=== PATIENT | male | born 1935 | race Caucasian/White ===

== ENCOUNTER 2019-07-24 17:43 | Inpatient (IN) | payer MEDICARE ==
[2019-07-24] MEDS ORDERED: ACETAMINOPHEN TAB 500 MG TAB PO STA (17:57)
[2019-07-24] MEDS ORDERED: SODIUM CHLORIDE 0.9% 1,000 ML IV STA (17:57)
--- NOTE | 2019-07-24 18:28 | ED ---
Chest Pain HPI - General Chief Complaint: Chest Pain Stated Complaint: all over pain Time Seen by Provider: 07/24/19 17:47 Source: patient, RN notes reviewed, old records reviewed Mode of arrival: ambulatory Limitations: no limitations - History of Present Illness Initial Comments: This is an 10-year-old male DF for evaluation mildly poor strain secondary to some hearing disability. Patient presents today with some chest discomfort some muscle strain and pain center for a few days but wanted to be seen by Dr. Saldana has been increasingly bottom denying any specific shortness of breath he does do his vital signs at home with her normal oxygen 0 96 with normal blood pressure heart rate. Patient remains afebrile no travel history or known sick contacts. Patient does have a mild history of high blood pressure did have abdominal bowel resection but no problems or issues there. No abdominal pain no nausea vomiting or diarrhea MD Complaint: chest pain, other (Muscle aches and pains anterior chest back or shoulders) -: days(s) Onset: during rest Pain Location: substernal Pain Radiation: none Severity: moderate Severity scale (1-10): 4 Quality: heaviness Consistency: constant Improves With: nothing Worsens With: nothing Other Symptoms: palpitations Treatments Prior to Arrival: none - Related Data Home Medications Medication Instructions Recorded Confirmed Acetaminophen Tab [Tylenol] 1,000 mg PO Q6H PRN 07/24/19 07/24/19 Losartan-Hctz 50-12.5 mg [Hyzaar 1 tab PO DAILY 07/24/19 07/24/19 50-12.5] Vit C/E/Zn/Coppr/Lutein/Zeaxan 1 cap PO BID 07/24/19 07/24/19 [Preservision Areds 2 Softgel] Allergies Allergy/AdvReac Type Severity Reaction Status Date / Time No Known Allergies Allergy Verified 07/24/19 18:30 Review of Systems ROS Statement: Those systems with pertinent positive or pertinent negative responses have been documented in the HPI. ROS Other: All systems not noted in ROS Statement are negative. EKG Findings - EKG Comments: EKG Findings:: EKG shows sinus rhythm of 88, RI 136, QRS 84, QTc 462 Past Medical History Past Medical History: Hyperlipidemia, Hypertension Additional Past Medical History / Comment(s): macular degeneration History of Any Multi-Drug Resistant Organisms: None Reported Additional Past Surgical History / Comment(s): GI bleed Smoking Status: Former smoker Past Alcohol Use History: None Reported Past Drug Use History: None Reported General Exam Limitations: no limitations General appearance: alert, in no apparent distress Head exam: Present: atraumatic, normocephalic, normal inspection Eye exam: Present: normal appearance, PERRL, EOMI. Absent: scleral icterus, conjunctival injection, periorbital swelling ENT exam: Present: normal exam, mucous membranes moist Neck exam: Present: normal inspection. Absent: tenderness, meningismus, lymphadenopathy Respiratory exam: Present: normal lung sounds bilaterally. Absent: respiratory distress, wheezes, rales, rhonchi, stridor Cardiovascular Exam: Present: regular rate, normal rhythm, normal heart sounds. Absent: systolic murmur, diastolic murmur, rubs, gallop, clicks GI/Abdominal exam: Present: soft, normal bowel sounds. Absent: distended, tenderness, guarding, rebound, rigid Extremities exam: Present: normal inspection, full ROM, normal capillary refill. Absent: tenderness, pedal edema, joint swelling, calf tenderness Back exam: Present: normal inspection Neurological exam: Present: alert, oriented X3, CN II-XII intact Psychiatric exam: Present: normal affect, normal mood Skin exam: Present: warm, dry, intact, normal color. Absent: rash Course Vital Signs 07/24/19 17:46 Temperature 97.3 F L Pulse Rate 95 Respiratory 18 Rate Blood Pressure 116/78 O2 Sat by Pulse 93 L Oximetry - Reevaluation(s) Reevaluation #1: 07/24/19 18:36 Medical record is reviewed Reevaluation #2: 07/24/19 20:06 Patient still having some left-sided chest pain but no shortness of breath Reevaluation #3: 07/24/19 20:06 Spoke with family regarding results, questions are answered - Consultations Consultation #1: spoke w EM who were agreeable for admission Chest Pain MDM - MDM 84 male DF for evaluation of chest pain patient does have non-STEMI elevated troponin will admit for cardiac treatment and evaluation. Patient placed on anticoagulation and cardiac telemetry Critical Care Time Critical Care Time: Yes Total Critical Care Time: 31 Disposition Clinical Impression: Chest pain, Acute non-ST elevation myocardial infarction (NSTEMI) Disposition: ADMITTED IP TO THIS HOSP Condition: Serious Is patient prescribed a controlled substance at d/c from ED?: No Referrals: Kathia Forde, PAC [Family Provider] - 1-2 days
[2019-07-24 18:52] LABS: Basophils # (A) 0.1 k/uL (0-0.2); Basophils % (A) 0 %; Eosinophils # (A) 0.1 k/uL (0-0.7); Eosinophils % (A) 1 %; HCT 42.6 % (39.0-53.0); Lymphocytes # (A) 1.8 k/uL (1.0-4.8); Lymphocytes % (A) 16 %; MCH 30.1 pg (25.0-35.0); MCHC 32.8 g/dL (31.0-37.0); MCV 91.7 fL (80.0-100.0); Mean Platelet Volume 7.1; Monocytes # (A) 1.1 k/uL (0-1.0); Monocytes % (A) 10 %; Neutrophils % (A) 70 %; Platelet Count 465 k/uL (150-450); RBC 4.65 m/uL (4.30-5.90); RDW 14.4 % (11.5-15.5); WBC 11.5 k/uL (3.8-10.6)
[2019-07-24 19:00] LABS: Calcium 9.8 mg/dL (8.4-10.2); Magnesium 1.5 mg/dL (1.6-2.3); Phosphorus 3.5 mg/dL (2.5-4.5); Potassium 3.9 mmol/L (3.5-5.1); Total Protein 7.3 g/dL (6.3-8.2)
[2019-07-24 19:08] LABS: Creatine Kinase MB 1.2 ng/mL (0.0-2.4)
--- NOTE | 2019-07-24 19:08 | XR ---
EXAMINATION TYPE: XR chest 2V DATE OF EXAM: 07/24/2019 COMPARISON: NONE HISTORY: Weakness and chest pain TECHNIQUE: Frontal and lateral views of the chest are obtained. FINDINGS: Pulmonary hyperinflation of underlying COPD is seen with flattening of the diaphragms. Api javier lucency is seen. Cardiomediastinal silhouette is within normal limits. Mild multilevel degenerati ve change of the spine and diffuse osseous demineralization. No new focal consolidation, pleural effu sada or pneumothorax. IMPRESSION: No acute cardiopulmonary process. Sequela of COPD.
[2019-07-24 19:21] LABS: INR 1.1 (<1.2); Partial Thromboplastin Time 25.2 sec (22.0-30.0); Prothrombin Time 10.9 sec (9.0-12.0)
[2019-07-24 19:29] LABS: Troponin I 0.198 ng/mL (0.000-0.034)
[2019-07-24] MEDS ORDERED: HEPARIN SODIUM,PORCINE 5,000 UNIT/ML 1 ML VIAL IV ONE (20:04)
[2019-07-24] MEDS ORDERED: NITROGLYCERIN SL TABS 0.4 MG TAB SUBLINGUAL PRN (20:04)
[2019-07-24] MEDS ORDERED: MORPHINE SULFATE 4 MG/ML SYRINGE IV PRN (20:04)
[2019-07-24] MEDS ORDERED: ASPIRIN 81 MG PO STA (20:04)
[2019-07-24] MEDS ORDERED: HEPARIN SODIUM,PORCINE 5,000 UNIT/ML 1 ML VIAL IV PRN (20:04)
[2019-07-24] MEDS ORDERED: HEPARIN SOD,PORK IN 0.45% NACL 25,000 UNIT in 0.45% NACL 1 250ML.BAG IV SCH (20:15)
[2019-07-24] MEDS ORDERED: SODIUM CHLORIDE 0.9% 1,000 ML IV SCH (20:15)
[2019-07-24] MEDS ORDERED: ACETAMINOPHEN TAB 500 MG TAB PO PRN (21:23)
[2019-07-24] MEDS: SODIUM CHLORIDE 0.9% 1,000 ML IV SCH (21:27)
[2019-07-25 03:21] LABS: Appearance,Urine Clear (Clear); Bacteria,Urine Moderate /hpf; Bilirubin,Urine Negative (Negative); Blood,Urine Trace (Negative); Color,Urine Yellow; Glucose,Urine (UA) Negative (Negative); Hyaline Casts,Urine 4 /lpf (0-2); Ketones,Urine Negative (Negative); Leukocyte Esterase,Urine Large (Negative); Mucus,Urine Rare /hpf; Nitrite,Urine Negative (Negative); PH, Urine 5.5 (5.0-8.0); Protein,Urine Trace (Negative); RBC,Urine 3 /hpf (0-5); Specific Gravity,Urine 1.013 (1.001-1.035); Squamous Epithelial Cell,Urine <1 /hpf (0-4); Urobilinogen,Urine <2.0 mg/dL (<2.0); WBC,Urine 49 /hpf (0-5)
[2019-07-25 04:27] LABS: Mean Platelet Volume 7.3; Platelet Count 397 k/uL (150-450)
[2019-07-25 06:01] LABS: Cholesterol 144 mg/dL (<200); HDL Cholesterol 37 mg/dL (40-60); LDL Cholesterol,Calculated 93 mg/dL (0-99); Triglycerides 71 mg/dL (<150)
[2019-07-25] MEDS ORDERED: ALPRAZolam 0.5 MG TAB PO PRN (08:35)
[2019-07-25] MEDS ORDERED: NITROGLYCERIN SL TABS 0.4 MG TAB SUBLINGUAL PRN (08:35)
[2019-07-25] MEDS ORDERED: ASPIRIN 325 MG TAB PO STA (08:35)
[2019-07-25] MEDS ORDERED: ATORVASTATIN 80 MG TAB PO STA (08:35)
[2019-07-25] MEDS ORDERED: SODIUM CHLORIDE 0.9% 1,000 ML in EMPTY BAG 1 BAG IV ONE (08:35)
[2019-07-25] MEDS ORDERED: ALPRAZolam 0.25 MG TAB PO PRN (08:35)
[2019-07-25] MEDS ORDERED: ASPIRIN 325 MG TAB PO SCH (09:00)
[2019-07-25] MEDS ORDERED: ATORVASTATIN 80 MG TAB PO SCH (09:00)
[2019-07-25] MEDS: VIT A,C & E-LUTEIN-MINERALS 1 EACH TAB PO SCH ×2 (09:04→20:30)
[2019-07-25] MEDS: LOSARTAN-HCTZ 50-12.5 MG 1 EACH TAB PO SCH (09:04)
--- NOTE | 2019-07-25 09:08 | ECHOF ---
Referral Reason:abn trop MEASUREMENTS -------- HEIGHT: 180.3 cm WEIGHT: 78.0 kg BP: 125/64 IVSd: 1.2 cm (0.6 - 1.1) LVIDd: 2.9 cm (3.9 - 5.3) LVPWd: 1.3 cm (0.6 - 1.1) IVSs: 1.5 cm LVIDs: 1.9 cm LVPWs: 1.6 cm LAESV Index (A-L): 16.82 ml/m Ao Diam: 3.8 cm (2.0 - 3.7) AV Cusp: 1.7 cm (1.5 - 2.6) MV EXCURSION: 14.056 mm (> 18.000) MV EF SLOPE: 124 mm/s (70 - 150) EPSS: 1.4 cm MV E Amos: 0.53 m/s MV DecT: 172 ms MV A Amos: 0.93 m/s MV E/A Ratio: 0.57 AR PHT: 388 ms RAP: 5.00 mmHg RVSP: 14.95 mmHg FINDINGS -------- Sinus rhythm. This was a technically difficult study with suboptimal apical views. The left ventricular size is normal. There is mild concentric left ventricular hypertrophy. Overa ll left ventricular systolic function is normal with, an EF between 55 - 60 %. The diastolic fillin g pattern is normal for the age of the patient 8.05. The RV was not well visualized. Normal LA size by volume 22+/-6 ml/m2. The right atrium was not well visualized. 5.0mg of Lumason was utilized for enhancement of images Interatrial and interventricular septum intact. The aortic valve was not well visualized. Trace amount of aortic regurgitation. There is no evid ence of aortic stenosis. No mitral regurgitation. Mild tricuspid regurgitation present. There is no evidence of pulmonary hypertension. The right v entricular systolic pressure, as measured by Doppler, is 14.95mmHg. The pulmonic valve was not well visualized. There is no pulmonic regurgitation present. The aortic root size is normal. IVC Not well visulized. There is no pericardial effusion. CONCLUSIONS -------- 1. This was a technically difficult study with suboptimal apical views. 2. The left ventricular size is normal. 3. There is mild concentric left ventricular hypertrophy. 4. Overall left ventricular systolic function is normal with, an EF between 55 - 60 %. 5. The diastolic filling pattern is normal for the age of the patient 8.05 6. The RV was not well visualized. 7. Normal LA size by volume 22+/-6 ml/m2. 8. 5.0mg of Lumason was utilized for enhancement of images 9. The aortic valve was not well visualized. 10. Trace amount of aortic regurgitation. 11. There is no evidence of aortic stenosis. 12. No mitral regurgitation. 13. Mild tricuspid regurgitation present. 14. There is no evidence of pulmonary hypertension. 15. There is no pulmonic regurgitation present. 16. IVC Not well visulized. 17. There is no pericardial effusion. WELDER APPRENTICE ARC: Tammy Simon RDCS
--- NOTE | 2019-07-25 10:07 | CONS ---
CONSULTATION This is an 84-year-old gentleman who is hard of hearing, has history of hypertension, has had some bowel surgery in 2007. He is a reasonably active person. He came into the hospital after a phone call from his primary care physician and his PCP suggested he should go to the emergency room. He has been having ongoing episode of discomfort in the upper chest and between the scapula. The discomfort seemed to be persistent, seemed to occur with activity. After arrival to the hospital, his troponin has gone up and the profile suggests myocardial injury with a small non ST elevation MS. EKG, however, was unremarkable. He is resting comfortably at the time of my evaluation, but clearly the troponin profile and symptoms to suggest angina. PAST MEDICAL HISTORY: 1. Hypertension. 2. History of some bowel surgery that was performed in 2007, details are unclear, but the patient did not have any malignancy. 3. He also has underlying hypertension and macular degeneration. 4. He has a remote history of GI bleed, details are unclear. 5. He is a past smoker. ALLERGIES: None. MEDICATIONS: Medications include losartan HCTZ 50/12.5 one tablet daily and vitamin supplements. PHYSICAL EXAMINATION: On examination, blood pressure is 130/70, pulse rate is 80 per minute, regular. HEENT unremarkable. Fundus was not examined by me. Neck is supple. There is no JVD. There is no carotid bruit. Heart exam reveals S1, S2. There is a short systolic murmur in the left sternal border. Lungs reveal diminished air entry. Abdomen is soft, nontender. Lower extremities reveal diminished pulses. Central nervous system grossly within normal limits. IMPRESSION: 1. Chest pain syndrome with elevated troponin suggestive of non-ST elevation myocardial infarction. 2. Hypertension. 3. History of remote gastrointestinal bleed and GI surgery, details unclear. RECOMMENDATION: I am recommending coronary angiography. I explained to the patient the rationale, risks, benefits, and options. I also spoke to his daughter at length. Both of them understand, agree and wish to proceed. They are aware of the risks, benefits, and options. We will perform coronary angiography and PCI if indicated. Prior to surgery, he wanted to have another discussion with his daughter and myself. MMODL / IJN: [id number] /
[2019-07-25] MEDS: METOPROLOL TARTRATE 25 MG TAB PO SCH ×2 (10:17→20:30)
[2019-07-25] MEDS ORDERED: IV FLUID CONTINUATION 600 ML IV ONE (10:45)
[2019-07-25] MEDS ORDERED: MIDAZOLAM 2 MG/2 ML VIAL IV ONE (11:03)
[2019-07-25] MEDS ORDERED: LIDOCAINE 1% INJ 10MG/ML (20 ML MDV) SQ ONE (11:05)
[2019-07-25] MEDS: VERAPAMIL SYRINGE (5 MG/10 ML) INTRAARTER ONE ×2 (11:06→11:16)
[2019-07-25] MEDS ORDERED: IOPAMIDOL-370 100ML BTL INJ ONE (11:16)
[2019-07-25] MEDS ORDERED: RX INFO: IV CONTRAST WAS GIVEN 1 EACH MISC MISCELLANE PRN (11:23)
--- NOTE | 2019-07-25 12:10 | CC ---
CARDIAC CATHETERIZATION REPORT DATE OF SERVICE: 07/25/2019 PROCEDURE: Left heart catheterization and coronary angiography. PERFORMED BY: Dr. Greta Estrada. Moderate conscious sedation time was 16 minutes. The patient was administered Versed. Oxygen saturation, hemodynamics and EKG were monitored closely. CLINICAL INFORMATION: Mr. Chase Reyes is an 84-year-old gentleman with history of hypertension, came into the hospital with midscapular pressure-like discomfort that radiated to the front of the chest with some diaphoresis. His initial troponin and subsequent troponins went up with a trend suggestive of non-ST elevation AL. Pain was precordial and midscapular. His blood pressure was never elevated. His blood pressure is under good control with losartan. In view of a troponin rise and symptoms, he was advised coronary angiography after due discussion regarding risks, benefits, and options. PROCEDURE NOTE: Under local anesthesia and strict aseptic precautions, a 6-[place] sheath was placed in the right radial artery. Using a JL3.5 and JR4.0 catheter, I performed coronary angiography. The same right catheter was used to check LV pressure. The sheath was taken out and TR band applied as per protocol with saturation of the fingers of the right hand of 95%. Patient tolerated procedure well without complication. Results were discussed with the patient and I also spoke to his daughter, Seble, by phone. CARDIAC CATHETERIZATION FINDINGS: The left ventricular end-diastolic pressure was about 8-10 mmHg without any gradient across the aortic valve. CORONARY ANGIOGRAPHY FINDINGS: RIGHT CORONARY ARTERY: Large dominant vessel. No significant disease. Distally bifurcates into a larger PLV, smaller PDA. Has minor irregularities. No significant disease. LEFT MAIN CORONARY ARTERY: Short patent disease-free vessel that bifurcates into LAD and circumflex. LEFT ANTERIOR DESCENDING CORONARY ARTERY: Good caliber vessel extends along the anterior wall, gives off large diagonal and septal branches, has minor irregularities, no significant disease and runs all the way to the apex supplying a sizable amount of myocardium. The diagonal and LAD both seem to supply the LAD distribution. There are small septal branches which are also free of significant disease. LEFT POSTERIOR CIRCUMFLEX CORONARY ARTERY: This is a technically nondominant vessel, small caliber in distribution, gives off one high obtuse marginal then continues as a second obtuse marginal. There are minor irregularities. No significant disease. FINAL IMPRESSION: This patient has normal filling pressures. No gradient across aortic valve. Right dominant system. No significant coronary artery disease. His elevated troponin is probably unrelated to myocardial injury. I will obtain a D-dimer and consider a CT angio tomorrow if patient's symptoms persist. Discussed my thoughts in detail with the patient. He will be hydrated and we will check BUN and creatinine in the morning. MMODL / IJN: [id number] /
[2019-07-25] MEDS: SODIUM CHLORIDE 0.9% 1,000 ML IV SCH ×3 (12:36→21:17)
--- NOTE | 2019-07-25 14:09 | P.HPIM ---
History of Present Illness 84-year-old the pleasant male came in with complaints of chest pain which appears to be musculoskeletal which appears to mostly shoulder pain nonradiating has been going on for few days improves with Tylenol denied any excessive nausea lightheadedness shortness of breath patient chest pain is nonpleuritic not associated with food. Patient d-dimer is normal for his age patient underwent cardiac catheterization of Ruling out a concurrent syndromes because of elevated troponins which is a mild elevation and did not have any it was cardiovascular disease that will need intervention or stenting. Review of Systems REVIEW OF SYSTEMS: CONSTITUTIONAL: No fever, no malaise, no fatigue. HEENT: No recent visual problems or hearing problems. Denied any sore throat. CARDIOVASCULAR: No, orthopnea, PND, no palpitations, no syncope. PULMONARY: No shortness of breath, no cough, no hemoptysis. GASTROINTESTINAL: No diarrhea, no nausea, no vomiting, no abdominal pain. NEUROLOGICAL: No headaches, no weakness, no numbness. HEMATOLOGICAL: Denies any bleeding or petechiae. GENITOURINARY: Denies any burning micturition, frequency, or urgency. MUSCULOSKELETAL/RHEUMATOLOGICAL: Denies any joint pain, swelling, or any muscle pain. ENDOCRINE: Denies any polyuria or polydipsia. The rest of the 14-point review of systems is negative. Past Medical History Past Medical History: GI Bleed, Hyperlipidemia, Hypertension Additional Past Medical History / Comment(s): macular degeneration History of Any Multi-Drug Resistant Organisms: None Reported Additional Past Surgical History / Comment(s): colonoscopy 2007 Past Anesthesia/Blood Transfusion Reactions: No Reported Reaction Smoking Status: Former smoker Medications and Allergies Home Medications Medication Instructions Recorded Confirmed Type Acetaminophen Tab [Tylenol] 1,000 mg PO Q6H PRN 07/24/19 07/24/19 History Losartan-Hctz 50-12.5 mg [Hyzaar 1 tab PO DAILY 07/24/19 07/24/19 History 50-12.5] Vit C/E/Zn/Coppr/Lutein/Zeaxan 1 cap PO BID 07/24/19 07/24/19 History [Preservision Areds 2 Softgel] Allergies Allergy/AdvReac Type Severity Reaction Status Date / Time No Known Allergies Allergy Verified 07/24/19 18:30 Physical Exam Vitals: Vital Signs Temp Pulse Pulse Pulse Resp BP BP 07/25/19 12:38 76 20 117/58 07/25/19 12:08 72 20 118/68 07/25/19 11:53 84 20 115/62 07/25/19 11:38 77 20 117/58 07/25/19 08:00 97.6 F 93 20 151/72 07/25/19 04:00 97.7 F 74 18 125/64 07/24/19 23:57 92 18 07/24/19 23:53 97.8 F 92 18 112/58 07/24/19 21:09 97.6 F 87 18 139/70 07/24/19 21:00 92 18 07/24/19 20:30 84 18 120/75 07/24/19 20:00 80 131/76 07/24/19 19:30 91 124/74 07/24/19 19:00 86 125/78 07/24/19 18:30 90 134/69 07/24/19 18:00 92 07/24/19 17:46 97.3 F L 95 18 116/78 Pulse Ox 07/25/19 12:38 95 07/25/19 12:08 94 L 07/25/19 11:53 94 L 07/25/19 11:38 95 07/25/19 08:00 95 07/25/19 04:00 96 07/24/19 23:57 07/24/19 23:53 97 07/24/19 21:09 96 07/24/19 21:00 07/24/19 20:30 96 07/24/19 20:00 07/24/19 19:30 07/24/19 19:00 07/24/19 18:30 97 07/24/19 18:00 07/24/19 17:46 93 L Intake and Output 07/24/19 07/25/19 07/25/19 22:59 06:59 14:59 Intake Total 220 Output Total 400 Balance -180 Intake: IV 100 Oral 120 Output: Urine 400 Other: Voiding Method Toilet Toilet Urinal Urinal # Voids 2 2 Weight 80.739 kg 78.2 kg PHYSICAL EXAMINATION: GENERAL: The patient is alert and oriented x3, not in any acute distress. Well developed, well nourished. HEENT: Pupils are round and equally reacting to light. EOMI. No scleral icterus. No conjunctival pallor. Normocephalic, atraumatic. No pharyngeal erythema. No thyromegaly. CARDIOVASCULAR: S1 and S2 present. No murmurs, rubs, or gallops. PULMONARY: Chest is clear to auscultation, no wheezing or crackles. ABDOMEN: Soft, nontender, nondistended, normoactive bowel sounds. No palpable organomegaly. MUSCULOSKELETAL: No joint swelling or deformity. EXTREMITIES: No cyanosis, clubbing, or pedal edema. NEUROLOGICAL: Gross neurological examination did not reveal any focal deficits. SKIN: No rashes. Results CBC & Chem 7: 07/25/19 04:01 07/24/19 18:05 Labs: Abnormal Lab Results - Last 24 Hours (Table) 07/24/19 07/24/19 07/24/19 Range/Units 18:05 18:05 18:05 WBC 11.5 H (3.8-10.6) k/uL Plt Count 465 H (150-450) k/uL Neutrophils # 8.0 H (1.3-7.7) k/uL Monocytes # 1.1 H (0-1.0) k/uL APTT (22.0-30.0) sec D-Dimer (<0.60) mg/L FEU Sodium 135 L (137-145) mmol/L Chloride 94 L (98-107) mmol/L Carbon Dioxide 31 H (22-30) mmol/L Glucose 107 H (74-99) mg/dL Magnesium 1.5 L (1.6-2.3) mg/dL Creatine Kinase 33 L (55-170) U/L Troponin I 0.198 H* (0.000-0.034) ng/mL HDL Cholesterol (40-60) mg/dL Urine Protein (Negative) Urine Blood (Negative) Ur Leukocyte Esterase (Negative) Urine WBC (0-5) /hpf Urine WBC Clumps (None) /hpf Urine Bacteria (None) /hpf Hyaline Casts (0-2) /lpf Urine Mucus (None) /hpf 07/25/19 07/25/19 07/25/19 Range/Units 00:05 01:25 04:01 WBC (3.8-10.6) k/uL Plt Count (150-450) k/uL Neutrophils # (1.3-7.7) k/uL Monocytes # (0-1.0) k/uL APTT (22.0-30.0) sec D-Dimer (<0.60) mg/L FEU Sodium (137-145) mmol/L Chloride (98-107) mmol/L Carbon Dioxide (22-30) mmol/L Glucose (74-99) mg/dL Magnesium (1.6-2.3) mg/dL Creatine Kinase (55-170) U/L Troponin I 0.355 H* 0.283 H* (0.000-0.034) ng/mL HDL Cholesterol (40-60) mg/dL Urine Protein Trace H (Negative) Urine Blood Trace H (Negative) Ur Leukocyte Esterase Large H (Negative) Urine WBC 49 H (0-5) /hpf Urine WBC Clumps Few H (None) /hpf Urine Bacteria Moderate H (None) /hpf Hyaline Casts 4 H (0-2) /lpf Urine Mucus Rare H (None) /hpf 07/25/19 07/25/19 07/25/19 Range/Units 04:01 04:01 11:40 WBC (3.8-10.6) k/uL Plt Count (150-450) k/uL Neutrophils # (1.3-7.7) k/uL Monocytes # (0-1.0) k/uL APTT 47.5 H (22.0-30.0) sec D-Dimer 0.80 H (<0.60) mg/L FEU Sodium (137-145) mmol/L Chloride (98-107) mmol/L Carbon Dioxide (22-30) mmol/L Glucose (74-99) mg/dL Magnesium (1.6-2.3) mg/dL Creatine Kinase (55-170) U/L Troponin I (0.000-0.034) ng/mL HDL Cholesterol 37 L (40-60) mg/dL Urine Protein (Negative) Urine Blood (Negative) Ur Leukocyte Esterase (Negative) Urine WBC (0-5) /hpf Urine WBC Clumps (None) /hpf Urine Bacteria (None) /hpf Hyaline Casts (0-2) /lpf Urine Mucus (None) /hpf Microbiology - Last 24 Hours (Table) 07/25/19 01:25 Urine Culture - Preliminary Urine,Voided Thrombosis Risk Factor Assmnt - Choose All That Apply Any of the Below Risk Factors Present?: No Other Risk Factors: Yes Each Risk Factor Represents 3 Points: Age 75 years or older Other congenital or acquired thrombophilia - If yes, enter type in comment: No Thrombosis Risk Factor Assessment Total Risk Factor Score: 3 Thrombosis Risk Factor Assessment Level: Moderate Risk Assessment and Plan Plan: -chest pain: Rule out acute medicine syndromes and the patient underwent cardiac catheterization which did not show any significant atherosclerotic occlusive dis ease that will need intervention. Possibly of PE is low as patient has a normal d-dimer for his age. Patient will be monitored overnight as recommended by cardiology. -Elevated troponin no evidence of acute microinfarction etiology of elevated troponin is not clear. Patient has multiple musculoskeletal chest pain -shoulder pain for which patient will need to follow up with orthopedic surgery as an outpatient and Tylenol -hyperlipidemia -hypertension
[2019-07-25] MEDS: MAGNESIUM SULFATE-D5W PMX 1 GM in DEXTROSE/WATER 1 100ML.BAG IVPB SCH ×2 (15:38→16:43)
[2019-07-25] MEDS: BUDESONIDE 0.5 MG/2 ML NEBU INHALATION SCH (20:52)
[2019-07-26] MEDS: METOPROLOL TARTRATE 25 MG TAB PO SCH ×2 (08:13→23:52)
[2019-07-26] MEDS: ATORVASTATIN 20 MG TAB PO SCH (08:13)
[2019-07-26] MEDS: LOSARTAN-HCTZ 50-12.5 MG 1 EACH TAB PO SCH (08:13)
[2019-07-26] MEDS: VIT A,C & E-LUTEIN-MINERALS 1 EACH TAB PO SCH ×2 (08:13→23:52)
[2019-07-26] MEDS: ASPIRIN 81 MG PO SCH (08:13)
[2019-07-26] MEDS: SODIUM CHLORIDE 0.9% 1,000 ML IV SCH (08:14)
[2019-07-26] MEDS: IPRATROPIUM-ALBUTEROL 3 ML NEB INHALATION PRN ×2 (08:42→16:40)
[2019-07-26] MEDS: BUDESONIDE 0.5 MG/2 ML NEBU INHALATION SCH ×2 (08:42→20:29)
[2019-07-26 08:47] LABS: Basophils % (A) 0 %; Eosinophils # (A) 0.2 k/uL (0-0.7); Eosinophils % (A) 2 %; HCT 38.5 % (39.0-53.0); HGB 12.1 gm/dL (13.0-17.5); Lymphocytes # (A) 1.4 k/uL (1.0-4.8); Lymphocytes % (A) 13 %; MCH 29.4 pg (25.0-35.0); MCHC 31.5 g/dL (31.0-37.0); MCV 93.1 fL (80.0-100.0); Mean Platelet Volume 7.3; Monocytes # (A) 1.3 k/uL (0-1.0); Monocytes % (A) 12 %; Neutrophils # (A) 7.3 k/uL (1.3-7.7); Neutrophils % (A) 70 %; Platelet Count 392 k/uL (150-450); RBC 4.13 m/uL (4.30-5.90); RDW 14.3 % (11.5-15.5); WBC 10.5 k/uL (3.8-10.6)
[2019-07-26 08:57] LABS: African American GFR (CKD) >90 (>60 ml/min/1.73 sqM); Anion Gap 5 mmol/L; Blood Urea Nitrogen 23 mg/dL (9-20); Calcium 9.2 mg/dL (8.4-10.2); Carbon Dioxide 33 mmol/L (22-30); Chloride 97 mmol/L (98-107); Glucose 108 mg/dL (74-99); Magnesium 1.8 mg/dL (1.6-2.3); Non-African American GFR(CKD) 85 (>60 ml/min/1.73 sqM); Potassium 4.1 mmol/L (3.5-5.1); Sodium 135 mmol/L (137-145)
[2019-07-26] MEDS ORDERED: methylPREDNISolone SOD SUCCI 125 MG/2 ML VIAL IV STA (09:40)
--- NOTE | 2019-07-26 11:21 | CT ---
EXAMINATION TYPE: CT angio chest DATE OF EXAM: 07/26/2019 COMPARISON: NONE HISTORY: NStemi; Elevated d-dimer CT DLP: 351.3 mGycm. Automated Exposure Control for Dose Reduction was Utilized. CONTRAST: CTA scan of the thorax is performed without and with IV Contrast, patient injected with 100 ml mL of Isovue 370, pulmonary embolism protocol. MIP Images are created on CT scanner and reviewed. FINDINGS: LUNGS: There is a lingular 4 mm pulmonary nodule seen. Extensive respiratory motion limits evaluation . Moderate centrilobular emphysematous changes of the lungs and scattered areas of linear pleural par enchymal scarring. The lungs are grossly clear, there is no concerning parenchymal mass or nodule jeancarlos ntified. There is no pleural effusion or pneumothorax seen. The tracheobronchial tree is patent. MEDIASTINUM: There is satisfactory enhancement of the main pulmonary artery and the majority of its b ranches. However there is motion artifact with linear areas of hypoattenuation in the segmental pulmo nary artery to the right lower lobe. This does in fact appear linear on coronal reconstructed images and could be artifactual. Remainder of the pulmonary arteries display no evidence of pulmonary embolu s. No abnormal right ventricular to left ventricular ratio. Reflux of contrast into the inferior vena cava and hepatic veins are seen however. The main pulmonary artery measures 3.0 cm, upper limits of normal size. There are no greater than 1 cm hilar or mediastinal lymph nodes. No cardiomegaly or pe ricardial effusion is seen. Mild coronary calcifications seen. 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 There is a large hiatal hernia. Multile xuan degenerative disc disease of the spine is seen with multiple Schmorl's nodes. Slight vertebral glenis dy height loss of T7. IMPRESSION: 1. The majority the pulmonary arteries demonstrate no evidence of pulmonary embolus however the right lower lobe segmental pulmonary artery is equivocal for pulmonary embolus with large degree of respir atory motion demonstrated on the lung algorithm obscuring this segmental pulmonary artery. If there i s further clinical concern repeat imaging could be performed in 12-24 hours. 2. 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 3. Age-indeterminate mild compression deformity of T7. Correlate for point tenderness. 4. Lingular 4 mm pulmonary nodule for which consensus criteria recommends repeat CT for surveillance in 12 months. 5. Main pulmonary artery is upper limits of normal size, which can be seen in pulmonary arterial hype rtension. 6. Moderate emphysematous changes of the lungs.
[2019-07-26] MEDS ORDERED: FUROSEMIDE 10 MG/ML 2 ML VIAL IV ONE (11:37)
--- NOTE | 2019-07-26 12:33 | P.PN ---
Subjective 84-year-old the pleasant male came in with complaints of chest pain which appears to be musculoskeletal which appears to mostly shoulder pain nonradiating has been going on for few days improves with Tylenol denied any excessive nausea lightheadedness shortness of breath patient chest pain is nonpleuritic not associated with food. Patient d-dimer is normal for his age patient underwent cardiac catheterization of Ruling out a concurrent syndromes because of elevated troponins which is a mild elevation and did not have any it was cardiovascular disease that will need intervention or stenting. 07/26/2019 Patient had a CAT scan of the chest which did not show any pulmonary embolism but the right lower lobe segmental pulmonary artery PE cannot be ruled out I do not believe patient has a PE as patient's symptoms already resolved and patien t's d-dimer is normal for his age. Patient also will be started on DVT prophylaxis dose of Lovenox. Patient doesn't have any fever leukocytosis denied any UTI symptoms of dysuria suprapubic pain although his urine cultures are positive for a enterococcus greater than 100,000 still can be asymptomatic bacteriuria but will give him 3 days of Augmentin patient the wheezing is worse today patient respiratory status is bit worse today saturating only 94% on 2 L of oxygen. Patient will be started on systemic steroids will be monitored today possibility of discharge tomorrow patient will be transferred out of stepdown unit. Constitutional: Denied any fatigue denied any fever. Cardio vascular: denied any chest pain, palpitations Gastrointestinal denied any nausea vomiting Pulmonary: Denied any shortness of breath cough Neurologic denied any new focal deficits All inpatient medications were reviewed and appropriate changes in these medications as dictated in the interval history and assessment and plan. Objective - Vital Signs Vital signs: Vital Signs Temp 97.7 F 07/26/19 08:21 Pulse 82 07/26/19 08:54 Resp 20 07/26/19 08:21 BP 130/63 07/26/19 08:21 Pulse Ox 94 L 07/26/19 08:21 Intake & Output 07/25/19 07/26/19 07/26/19 18:59 06:59 18:59 Intake Total 340 180 Output Total 400 400 Balance -60 -400 180 Weight 76.8 kg Intake: IV 100 Oral 240 180 Output: Urine 400 400 Other: Voiding Method Toilet Urinal # Voids 1 1 # Bowel Movements 1 2 - Exam PHYSICAL EXAMINATION: GENERAL: The patient is alert and oriented x3, not in any acute distress. Well developed, well nourished. HEENT: Pupils are round and equally reacting to light. EOMI. No scleral icterus. No conjunctival pallor. Normocephalic, atraumatic. No pharyngeal erythema. No thyromegaly. CARDIOVASCULAR: S1 and S2 present. No murmurs, rubs, or gallops. PULMONARY: Decreased air entry chest is tight expiratory wheezing ABDOMEN: Soft, nontender, nondistended, normoactive bowel sounds. No palpable organomegaly. MUSCULOSKELETAL: No joint swelling or deformity. EXTREMITIES: No cyanosis, clubbing, or pedal edema. NEUROLOGICAL: Gross neurological examination did not reveal any focal deficits. SKIN: No rashes. - Labs CBC & Chem 7: 07/26/19 07:55 07/26/19 07:55 Labs: Abnormal Lab Results - Last 24 Hours (Table) 07/25/19 07/26/19 07/26/19 Range/Units 11:40 07:55 07:55 RBC 4.13 L (4.30-5.90) m/uL Hgb 12.1 L (13.0-17.5) gm/dL Hct 38.5 L (39.0-53.0) % Monocytes # 1.3 H (0-1.0) k/uL D-Dimer 0.80 H (<0.60) mg/L FEU Sodium 135 L (137-145) mmol/L Chloride 97 L (98-107) mmol/L Carbon Dioxide 33 H (22-30) mmol/L BUN 23 H (9-20) mg/dL Glucose 108 H (74-99) mg/dL Microbiology - Last 24 Hours (Table) 07/25/19 01:25 Urine Culture - Preliminary Urine,Voided Group D Enterococcus Assessment and Plan Plan: -chest pain: Ruled out acute E syndromes and the patient underwent cardiac catheterization which did not show any significant atherosclerotic occlusive disease that will need intervention. Possibly of PE is low as patient has a normal d-dimer for his age. Although patient ended up undergoing CT angios the chest which cannot rule out a small segment PE but my suspicion is low for PE patient will not need any anticoagulation patient will be on DVT prophylaxis dose of Lovenox. Because of the above-mentioned reasons in interval history do not believe patient has pulmonary embolism. -COPD with acute exacerbation: Patient will be started on [place] oral steroids will give a dose of IV steroids patient will be continued on inhalational placement possibility of discharge tomorrow -Possible asymptomatic bacteriuria my suspicion is low for UTI but anyways regarding given 3 days of antibiotic and urine cultures showing group D enterococcus, since studies are pending -Elevated troponin no evidence of acute myocardial infarction etiology of elevated troponin is not clear. Patient has multiple musculoskeletal chest pain -shoulder pain for which patient will need to follow up with orthopedic surgery as an outpatient and Tylenol -hyperlipidemia -hypertension
--- NOTE | 2019-07-26 15:51 | PN ---
PROGRESS NOTE Mr. Reyes presented with chest pain, interscapular pain, elevated troponin. His D-dimer was unremarkable. His cardiac cath did not reveal obstructive CAD. He continued to have midsternal discomfort, and therefore I performed a CT angio which revealed no evidence of any aortic pathology. He is resting comfortably but had some wheezing today. He has underlying reactive airway disease. I am recommending that we give him an inhaler, and some steroids are prescribed by the hospitalist. He is resting comfortably without symptoms. Vital signs are stable. No JVD or carotid bruit. S1, S2 heard normally. Short systolic murmur noted. Lungs reveal scattered expiratory rhonchi. Abdomen is soft. Lower extremities reveal palpable pulses. Right radial cath site is clean and dry with a good pulse. I am recommending that we keep him in the hospital, decrease IV fluids to KVO, give him an albuterol inhaler, and steroids were initiated by the hospitalist. Hopefully we can discharge him tomorrow if he remains stable. Discussed my thoughts in detail with the patient. Thank you very much for the consult. MMODL / IJN: [id number] /
[2019-07-26] MEDS: ALBUTEROL NEBULIZED 2.5 MG/3 ML INHALATION SCH ×2 (16:41→20:29)
[2019-07-26] MEDS: AMOXIC-POT CLAV 875-125MG 1 EACH TAB PO SCH ×2 (17:43→23:52)
[2019-07-26] MEDS: ENOXAPARIN 40 MG/0.4 ML SYRINGE SQ SCH (17:43)
[2019-07-27] MEDS: SODIUM CHLORIDE 0.9% 1,000 ML IV SCH (06:10)
[2019-07-27 07:57] LABS: Mean Platelet Volume 7.8; Platelet Count 393 k/uL (150-450)
[2019-07-27] MEDS: BUDESONIDE 0.5 MG/2 ML NEBU INHALATION SCH (08:09)
[2019-07-27] MEDS: ALBUTEROL NEBULIZED 2.5 MG/3 ML INHALATION SCH ×2 (08:09→11:44)
[2019-07-27] MEDS: ASPIRIN 81 MG PO SCH (08:37)
[2019-07-27] MEDS: AMOXIC-POT CLAV 875-125MG 1 EACH TAB PO SCH ×2 (08:37→15:08)
[2019-07-27] MEDS: ENOXAPARIN 40 MG/0.4 ML SYRINGE SQ SCH (08:37)
[2019-07-27] MEDS: VIT A,C & E-LUTEIN-MINERALS 1 EACH TAB PO SCH (08:38)
[2019-07-27] MEDS: METOPROLOL TARTRATE 12.5 MG TAB PO SCH ×2 (08:38→15:08)
[2019-07-27] MEDS: LOSARTAN-HCTZ 50-12.5 MG 1 EACH TAB PO SCH (08:38)
[2019-07-27] MEDS: ATORVASTATIN 20 MG TAB PO SCH (08:39)
[2019-07-27] MEDS ORDERED: predniSONE 20 MG TAB PO SCH ×2 (09:00)
[2019-07-27 12:19] VITALS: RESP 22
[2019-07-27 12:22] VITALS: BP 119/57; PULSE 81; TEMP 97.8
--- NOTE | 2019-07-27 21:54 | PN ---
Mr. Reyes is a gentleman with some bronchial asthma exacerbation, also came in with chest pain and borderline troponin elevation. Cath revealed no significant CAD. He is doing well, breathing well. He is on inhalers, which we will continue. I will reduce the dose of beta blockers, increase activity and he can be discharged and we will see him in the office on Tuesday. Vitals are stable. No JVD. S1, S1 heard normally. Lungs: Reveal improved air entry. Scattered rhonchi, but much better. Abdomen, Lower Extremities: Exam unchanged. The patient can be discharged today. CASEY
--- NOTE | 2019-07-28 09:49 | PN ---
PROGRESS NOTE Mr. Reyes is a gentleman with some bronchial asthma exacerbation, also comes in with chest pain and borderline troponin elevation. Cath revealed no significant CAD. He is doing well, breathing well. He is on inhalers, which we will continue. I will reduce the dose of beta blockers, increase activity and he can be discharged and we will see him in the office on Tuesday. Vitals are stable. No JVD. S1,S2 heard normally. Lungs reveal improved air entry, scattered rhonchi, but much better. Abdomen and lower extremity exam unchanged. Patient can be discharged today. MMODL / IJN: [id number] /
--- NOTE | 2019-07-30 11:29 | CDI ---
Documentation Clarification Form Date: 07/30/19 From: Ashlee Quintanilla CCS Phone: If you have a question about this query, please contact Vianey Agustin, [employer] at [phone] between 8am and 5pm. Admit Date: 07/24/19 Discharge Date:07/27/19 Patient Name: Chase Reyes Visit Number: [id number] ATTENTION: The Clinical Documentation Specialists (CDI) and [facility] Coding Staff appreciate your assistance in clarifying documentation. Please respond to the clarification below the line at the bottom and electronically sign. The CDI & [facility] Coding staff will review the response and follow-up if needed. Please note: Queries are made part of the Legal Health Record. If you have any questions, please contact the author of this message via ITS. Dear Dr. Neri, Chest pain is documented in the ED, H&P, Consult, PNs Patient C/O: Chest pain, other (Muscle aches and pains anterior chest back or shoulders) History/Risk factors: HTN, COPD, Tobacco Hx Clinical Indicators: Chest and shoulder pain Troponin: 0.198, 0.355, 0.283 Cath: No significant coronary artery disease.His elevated troponin is probably unrelated to myocardial injury. Treatment: Heparin IV, Aspirin 325 mg PO, Prednisone PO, IV Solu-Medrol Consults: Sean In your professional opinion, can please clarify if the chest pain signifies, or is due to: Cardiac arrhythmias (specify type if known) Chest wall pain Costochondritis Psychogenic chest pain COPD Exacerbation Other condition, please specify Unable to determine unable to determine MTDD
--- NOTE | 2019-08-07 23:33 | P.DS ---
Providers Date of admission: 07/24/19 20:05 Expected date of discharge: 07/27/19 Attending physician: Ian Mcmillan Consults: 07/24/19 20:04 Consult Physician Urgent Consulting Provider: Wesley Dwyer Consult Reason/Comments: nstemi Do you want consulting provider notified?: Yes [facility]: 84-year-old the pleasant male came in with complaints of chest pain which appears to be musculoskeletal which appears to mostly shoulder pain nonradiating has been going on for few days improves with Tylenol denied any excessive nausea lightheadedness shortness of breath patient chest pain is nonpleuritic not associated with food. Patient d-dimer is normal for his age patient underwent cardiac catheterization of Ruling out a concurrent syndromes because of elevated troponins which is a mild elevation and did not have any it was cardiovascular disease that will need intervention or stenting. 07/26/2019 Patient had a CAT scan of the chest which did not show any pulmonary embolism but the right lower lobe segmental pulmonary artery PE cannot be ruled out I do not believe patient has a PE as patient's symptoms already resolved and mariela moreno's d-dimer is normal for his age. Patient also will be started on DVT prophylaxis dose of Lovenox. Patient doesn't have any fever leukocytosis denied any UTI symptoms of dysuria suprapubic pain although his urine cultures are positive for a enterococcus greater than 100,000 still can be asymptomatic bacteriuria but will give him 3 days of Augmentin patient the wheezing is worse today patient respiratory status is bit worse today saturating only 94% on 2 L of oxygen. Patient will be started on systemic steroids will be monitored today possibility of discharge tomorrow patient will be transferred out of stepdown unit. patient underwent cardiac cath which was unremarkable and was cleared for dc with out patient follow up Patient Condition at Discharge: Stable Plan - Discharge Summary Discharge Rx Participant: No New Discharge Prescriptions: New Aspirin 81 mg PO DAILY chew Amoxic-Pot Clav 875-125Mg [Augmentin 875-125] 1 each PO Q12HR #14 tab predniSONE [Deltasone] 20 mg PO DAILY #3 tab Atorvastatin [Lipitor] 20 mg PO DAILY #30 tab Metoprolol Tartrate [Lopressor] 12.5 mg PO BID #60 tab Albuterol Inhaler [Ventolin Hfa Inhaler] 1 puff INHALATION RT-QID #1 puff Continue Vit C/E/Zn/Coppr/Lutein/Zeaxan [Preservision Areds 2 Softgel] 1 cap PO BID Losartan-Hctz 50-12.5 mg [Hyzaar 50-12.5] 1 tab PO DAILY Discontinued Acetaminophen Tab [Tylenol] 1,000 mg PO Q6H PRN PRN Reason: Pain Discharge Medication List Losartan-Hctz 50-12.5 mg [Hyzaar 50-12.5] 1 tab PO DAILY 07/24/19 [History] Vit C/E/Zn/Coppr/Lutein/Zeaxan [Preservision Areds 2 Softgel] 1 cap PO BID 07/24/19 [History] Albuterol Inhaler [Ventolin Hfa Inhaler] 1 puff INHALATION RT-QID #1 puff 07/27/19 [Rx] Amoxic-Pot Clav 875-125Mg [Augmentin 875-125] 1 each PO Q12HR #14 tab 07/27/19 [Rx] Aspirin 81 mg PO DAILY chew 07/27/19 [Rx] Atorvastatin [Lipitor] 20 mg PO DAILY #30 tab 07/27/19 [Rx] Metoprolol Tartrate [Lopressor] 12.5 mg PO BID #60 tab 07/27/19 [Rx] predniSONE [Deltasone] 20 mg PO DAILY #3 tab 07/27/19 [Rx] Follow up Appointment(s)/Referral(s): Kathia Forde, HARPAL [Family Provider] - 1-2 days (Office closed, please call Tuesday for a follow up appointment over the phone. ) Danilo Estrada MD [STAFF PHYSICIAN] - 08/03/19 10:00 am () Patient Instructions/Handouts: Heart Healthy Diet (DC), After Radial Heart Catheterization (GEN) Activity/Diet/Wound Care/Special Instructions: CARDIAC CATH 1. Support your puncture site by applying firm, steady pressure whenever you cough, laugh, sneeze or bear down to have a bowel movement (2-day restriction). 2. Watch for any excessive bruising, active bleeding, a firm knot forming under your skin, extreme tenderness and signs of infection (redness, swelling, fever). 3. Shower daily, do not soak puncture in a tub bath, jacuzzi, pool, retana etc. for 1 week. This is to prevent risk of infection. 4. Drink plenty of fluids the day of and day after your procedure to flush contrast dye out of your kidneys. 5. Take all medications as directed. Never stop any new medication without your physicians OK. 6. No driving for 2 days after procedure. 7. 10- pound weight lifting restriction for 1 week. 8. Low sodium/low fat diet. 9. Activity limited until follow up appointment with your horse stud worker. In case of any problems, please call [facility] [place] @ [phone]. Discharge Disposition: HOME SELF-CARE
== END 2019-07-27 18:04 | disposition home or self-care (01) | DRG 287 ==
LOC: EC 17:43 → 3SCARD 20:05
PROVIDERS: ADMIT Hospitalist; ATTEND Hospitalist
PROC: B2111ZZ Fluoroscopy of Multiple Coronary Arteries using Low Osmolar Contrast (ICD-10-PCS; 2019-07-25)
PROC: 4A023N7 Measurement of Cardiac Sampling and Pressure, Left Heart, Percutaneous Approach (ICD-10-PCS; principal; 2019-07-25 09:50)
DX: R07.89 Other chest pain (principal); J44.1 Chronic obstructive pulmonary disease with (acute) exacerbation; I10 Essential (primary) hypertension; E78.5 Hyperlipidemia, unspecified; H35.30 Unspecified macular degeneration; R79.89 Other specified abnormal findings of blood chemistry; H91.90 Unspecified hearing loss, unspecified ear; R82.71 Bacteriuria; M25.519 Pain in unspecified shoulder; R00.2 Palpitations; R01.1 Cardiac murmur, unspecified; Z87.19 Personal history of other diseases of the digestive system; Z87.891 Personal history of nicotine dependence; Z98.890 Other specified postprocedural states; Z79.899 Other long term (current) drug therapy
CPT/HCPCS: 36415; 71046; 71275; 80048; 80053; 80061; 81001; 82550; 82553; 83605; 83735; 83880; 84100; 84484; 85025; 85049; 85379; 85610; 85730; 87077; 87086; 87186; 87502; 93005; 93306; 93458; 94640; 96361; 96374; 99291

== ENCOUNTER 2019-10-01 12:09 | Inpatient (IN) | payer MEDICARE ==
[2019-10-01] MEDS ORDERED: SODIUM CHLORIDE 0.9% 1,000 ML IV STA (13:04)
[2019-10-01] MEDS ORDERED: ONDANSETRON 4 MG/2 ML VIAL IVP STA (13:04)
--- NOTE | 2019-10-01 13:25 | ED ---
Weakness HPI - General Chief complaint: Weakness Stated complaint: pain between shoulders, weakness Time Seen by Provider: 10/01/19 12:34 Source: patient, family, RN notes reviewed, old records reviewed Mode of arrival: ambulatory Limitations: no limitations - History of Present Illness Initial comments: Patient is a 10-year-old male presents today with right rib and sternal pain and between the shoulder since he was discharged in July. He is short of breath with exertion and been laying on the couch and more fatigued since then. Patient states he has had no cough. No fevers. He is here with his daughter. Patient reports that he's had a full cardiac workup when he is admitted in July. Patient states that he has not followed up with any PCPs since hospitalization. He reports it's an ache within the chest. - Related Data Home Medications Medication Instructions Recorded Confirmed Losartan-Hctz 50-12.5 mg [Hyzaar 1 tab PO DAILY 07/24/19 10/01/19 50-12.5] Vit C/E/Zn/Coppr/Lutein/Zeaxan 1 cap PO BID 07/24/19 10/01/19 [Preservision Areds 2 Softgel] Acetaminophen [Tylenol Extra 500 mg PO Q8H PRN 10/01/19 10/01/19 Strength] Fluticasone Nasal [place] [Flonase 1 spray EA NOSTRIL BID PRN 10/01/19 10/01/19 Nasal [place]] Previous Rx's Medication Instructions Recorded Albuterol Inhaler [Ventolin Hfa 1 puff INHALATION RT-QID #1 puff 07/27/19 Inhaler] Aspirin 81 mg PO DAILY chew 07/27/19 Allergies Allergy/AdvReac Type Severity Reaction Status Date / Time No Known Allergies Allergy Verified 10/01/19 14:03 Review of Systems ROS Statement: Those systems with pertinent positive or pertinent negative responses have been documented in the HPI. ROS Other: All systems not noted in ROS Statement are negative. Past Medical History Past Medical History: GI Bleed, Hyperlipidemia, Hypertension Additional Past Medical History / Comment(s): macular degeneration History of Any Multi-Drug Resistant Organisms: None Reported Past Surgical History: Tonsillectomy Additional Past Surgical History / Comment(s): colonoscopy 2007 Past Anesthesia/Blood Transfusion Reactions: No Reported Reaction Past Psychological History: No Psychological Hx Reported Smoking Status: Former smoker General Exam - General Exam Comments Initial Comments: Laboratory and indeed 4-year-old female. No significant distress. Limitations: no limitations General appearance: alert, in no apparent distress Head exam: Present: atraumatic, normocephalic, normal inspection Eye exam: Present: normal appearance, PERRL, EOMI. Absent: scleral icterus, conjunctival injection, periorbital swelling ENT exam: Present: normal exam, mucous membranes moist Neck exam: Present: normal inspection. Absent: tenderness, meningismus, lymphadenopathy Respiratory exam: Present: normal lung sounds bilaterally. Absent: respiratory distress, wheezes, rales, rhonchi, stridor Cardiovascular Exam: Present: regular rate, normal rhythm, normal heart sounds. Absent: systolic murmur, diastolic murmur, rubs, gallop, clicks GI/Abdominal exam: Present: soft, normal bowel sounds. Absent: distended, tenderness, guarding, rebound, rigid Extremities exam: Present: normal inspection, full ROM, normal capillary refill. Absent: tenderness, pedal edema, joint swelling, calf tenderness Back exam: Present: normal inspection Neurological exam: Present: alert, oriented X3, CN II-XII intact Psychiatric exam: Present: normal affect, normal mood Skin exam: Present: warm, dry, intact, normal color. Absent: rash Course Vital Signs 10/01/19 10/01/19 10/01/19 12:19 12:24 13:24 Temperature 97.4 F L Pulse Rate 98 96 Respiratory 18 18 18 Rate Blood Pressure 128/81 132/76 O2 Sat by Pulse 95 Oximetry 10/01/19 10/01/19 14:24 15:00 Temperature Pulse Rate 99 96 Respiratory 18 18 Rate Blood Pressure 150/86 155/84 O2 Sat by Pulse Oximetry Medical Decision Making - Medical Decision Making 10-year-old male since performed today for generalized weakness, concern for chest pain, dyspnea worsening for the past months. He's had it since his last discharge from the hospital. Patient at this time does appear dyspneic placed on oxygen emergency department. He denies any coughing. Patient previous visits were reviewed. Patient is found to be still dyspneic in complaint chest discomfort. Laboratories reviewed and shows mildly elevated troponin 0.048. Patient started on heparin and aspirin. Patient was examined and room with Dr. Mcmillan. I informed Patient that he does have an elevated troponin will admit the Patient for observation with repeat troponins. Patient's daughter is agreeable to this plan. - Lab Data Result diagrams: 10/01/19 13:25 10/01/19 13:25 Lab Results 10/01/19 10/01/19 10/01/19 Range/Units 13:25 13:25 13:25 WBC 12.5 H (3.8-10.6) k/uL RBC 4.43 (4.30-5.90) m/uL Hgb 12.6 L (13.0-17.5) gm/dL Hct 41.2 (39.0-53.0) % MCV 92.9 (80.0-100.0) fL MCH 28.4 (25.0-35.0) pg MCHC 30.6 L (31.0-37.0) g/dL RDW 14.2 (11.5-15.5) % Plt Count 479 H (150-450) k/uL Neutrophils % 81 % Lymphocytes % 12 % Monocytes % 4 % Eosinophils % 1 % Basophils % 0 % Neutrophils # 10.1 H (1.3-7.7) k/uL Lymphocytes # 1.5 (1.0-4.8) k/uL Monocytes # 0.6 (0-1.0) k/uL Eosinophils # 0.2 (0-0.7) k/uL Basophils # 0.1 (0-0.2) k/uL Hypochromasia Slight PT 10.7 (9.0-12.0) sec INR 1.0 (<1.2) APTT 25.6 (22.0-30.0) sec Sodium 138 (137-145) mmol/L Potassium 4.7 (3.5-5.1) mmol/L Chloride 96 L (98-107) mmol/L Carbon Dioxide 29 (22-30) mmol/L Anion Gap 13 mmol/L BUN 28 H (9-20) mg/dL Creatinine 0.81 (0.66-1.25) mg/dL Est GFR (CKD-EPI)AfAm >90 (>60 ml/min/1.73 sqM) Est GFR (CKD-EPI)NonAf 83 (>60 ml/min/1.73 sqM) Glucose 106 H (74-99) mg/dL Plasma Lactic Acid Micheal (0.7-2.0) mmol/L Calcium 9.7 (8.4-10.2) mg/dL Ionized Calcium Kiran 4.9 (4.5-5.3) mg/dL Total Bilirubin 0.9 (0.2-1.3) mg/dL AST 39 (17-59) U/L ALT 16 (4-49) U/L Alkaline Phosphatase 102 (38-126) U/L Troponin I (0.000-0.034) ng/mL Total Protein 7.8 (6.3-8.2) g/dL Albumin 4.0 (3.5-5.0) g/dL TSH 0.959 (0.465-4.680) mIU/L 10/01/19 10/01/19 Range/Units 13:25 13:25 WBC (3.8-10.6) k/uL RBC (4.30-5.90) m/uL Hgb (13.0-17.5) gm/dL Hct (39.0-53.0) % MCV (80.0-100.0) fL MCH (25.0-35.0) pg MCHC (31.0-37.0) g/dL RDW (11.5-15.5) % Plt Count (150-450) k/uL Neutrophils % % Lymphocytes % % Monocytes % % Eosinophils % % Basophils % % Neutrophils # (1.3-7.7) k/uL Lymphocytes # (1.0-4.8) k/uL Monocytes # (0-1.0) k/uL Eosinophils # (0-0.7) k/uL Basophils # (0-0.2) k/uL Hypochromasia PT (9.0-12.0) sec INR (<1.2) APTT (22.0-30.0) sec Sodium (137-145) mmol/L Potassium (3.5-5.1) mmol/L Chloride (98-107) mmol/L Carbon Dioxide (22-30) mmol/L Anion Gap mmol/L BUN (9-20) mg/dL Creatinine (0.66-1.25) mg/dL Est GFR (CKD-EPI)AfAm (>60 ml/min/1.73 sqM) Est GFR (CKD-EPI)NonAf (>60 ml/min/1.73 sqM) Glucose (74-99) mg/dL Plasma Lactic Acid Micheal 1.1 (0.7-2.0) mmol/L Calcium (8.4-10.2) mg/dL Ionized Calcium Kiran (4.5-5.3) mg/dL Total Bilirubin (0.2-1.3) mg/dL AST (17-59) U/L ALT (4-49) U/L Alkaline Phosphatase (38-126) U/L Troponin I 0.048 H* (0.000-0.034) ng/mL Total Protein (6.3-8.2) g/dL Albumin (3.5-5.0) g/dL TSH (0.465-4.680) mIU/L 10/01/19 13:26 EKG performed at 1235 shows normal sinus rhythm right bundle branch block. Ventricular rate of 94 bpm. Verbal is 136 ms. QRS duration is 124 ms. QT QTc is 390 09/26/1994 milliseconds. - Radiology Data Radiology results: report reviewed Chest x-ray shows no acute process. Correlate for COPD. Large hiatal hernia. Disposition Clinical Impression: Acute non-ST elevation myocardial infarction (NSTEMI), Chest pain Disposition: ADMITTED IP TO THIS HOSP Condition: Stable Is patient prescribed a controlled substance at d/c from ED?: No Referrals: Ashley Chavez MD [Primary Care Provider] - 1-2 days Time of Disposition: 15:19
[2019-10-01] MEDS: SODIUM CHLORIDE 0.9% 1,000 ML IV SCH ×2 (13:46→23:54)
[2019-10-01 13:50] LABS: Basophils # (A) 0.1 k/uL (0-0.2); Basophils % (A) 0 %; Eosinophils # (A) 0.2 k/uL (0-0.7); Eosinophils % (A) 1 %; HCT 41.2 % (39.0-53.0); HGB 12.6 gm/dL (13.0-17.5); Hypochromasia Slight; Lymphocytes # (A) 1.5 k/uL (1.0-4.8); Lymphocytes % (A) 12 %; MCH 28.4 pg (25.0-35.0); MCHC 30.6 g/dL (31.0-37.0); MCV 92.9 fL (80.0-100.0); Mean Platelet Volume 7.3; Monocytes # (A) 0.6 k/uL (0-1.0); Monocytes % (A) 4 %; Neutrophils # (A) 10.1 k/uL (1.3-7.7); Neutrophils % (A) 81 %; Platelet Count 479 k/uL (150-450); RBC 4.43 m/uL (4.30-5.90); RDW 14.2 % (11.5-15.5); WBC 12.5 k/uL (3.8-10.6)
[2019-10-01 13:54] LABS: Partial Thromboplastin Time 25.6 sec (22.0-30.0); Prothrombin Time 10.7 sec (9.0-12.0)
--- NOTE | 2019-10-01 13:57 | XR ---
EXAMINATION TYPE: XR chest 2V DATE OF EXAM: 10/01/2019 COMPARISON: 07/24/2019 TECHNIQUE: PA and lateral views submitted. HISTORY: Weakness FINDINGS: The lungs are clear and there is no pneumothorax, pleural effusion, or focal pneumonia. Weakness a large hiatal hernia with biapical pleural thickening and hyperinflation suggestive of COPD. Chronic d eformity of the distal left clavicle. No overt failure. Prominent pulmonary arteries can be associate d with pulmonary arterial hypertension. IMPRESSION: 1. No acute process. Orally for COPD. 2. Large hiatal hernia.
[2019-10-01 13:59] LABS: Ionized Calcium 4.9 mg/dL (4.5-5.3)
[2019-10-01 14:08] LABS: ALT 16 U/L (4-49); African American GFR (CKD) >90 (>60 ml/min/1.73 sqM); Anion Gap 13 mmol/L; Blood Urea Nitrogen 28 mg/dL (9-20); Calcium 9.7 mg/dL (8.4-10.2); Carbon Dioxide 29 mmol/L (22-30); Chloride 96 mmol/L (98-107); Glucose 106 mg/dL (74-99); Non-African American GFR(CKD) 83 (>60 ml/min/1.73 sqM); Sodium 138 mmol/L (137-145); Total Bilirubin 0.9 mg/dL (0.2-1.3)
[2019-10-01 14:17] LABS: Potassium 4.7 mmol/L (3.5-5.1)
[2019-10-01 14:18] LABS: AST 39 U/L (17-59); Alkaline Phosphatase 102 U/L (38-126); Total Protein 7.8 g/dL (6.3-8.2)
[2019-10-01] MEDS ORDERED: HEPARIN SODIUM,PORCINE 5,000 UNIT/ML 1 ML VIAL IV ONE (15:12)
[2019-10-01] MEDS ORDERED: NITROGLYCERIN SL TABS 0.4 MG TAB SUBLINGUAL PRN (15:12)
[2019-10-01] MEDS ORDERED: HEPARIN SOD,PORK IN 0.45% NACL 25,000 UNIT in 0.45% NACL 1 250ML.BAG IV SCH (15:15)
[2019-10-01] MEDS ORDERED: methylPREDNISolone SOD SUCCI 125 MG/2 ML VIAL IV STA (15:15)
[2019-10-01] MEDS ORDERED: ASPIRIN 325 MG TAB PO STA (15:15)
[2019-10-01] MEDS ORDERED: MORPHINE SULFATE 2 MG/ML SYRINGE IVP STA (15:15)
[2019-10-01 15:19] LABS: Appearance,Urine Clear (Clear); Bilirubin,Urine Negative (Negative); Blood,Urine Negative (Negative); Color,Urine Yellow; Glucose,Urine (UA) Negative (Negative); Ketones,Urine Trace (Negative); Leukocyte Esterase,Urine Trace (Negative); Nitrite,Urine Negative (Negative); PH, Urine 5.5 (5.0-8.0); Protein,Urine Negative (Negative); RBC,Urine 5 /hpf (0-5); Specific Gravity,Urine 1.021 (1.001-1.035); WBC,Urine 4 /hpf (0-5)
[2019-10-01] MEDS ORDERED: FLUTICASONE 50MCG/SPRAY NASAL 16GM EA NOSTRIL PRN (16:13)
[2019-10-01] MEDS ORDERED: ACETAMINOPHEN TAB 500 MG TAB PO PRN (16:13)
[2019-10-01] MEDS ORDERED: ALPRAZolam 0.25 MG TAB PO PRN (16:15)
[2019-10-01] MEDS ORDERED: IPRATROPIUM-ALBUTEROL 3 ML NEB INHALATION PRN (16:15)
[2019-10-01] MEDS: ISOSORBIDE MONONITRATE ER 30 MG TAB.ER.24H PO SCH (18:05)
--- NOTE | 2019-10-01 18:58 | HP ---
HISTORY AND PHYSICAL DATE OF SERVICE: 10/01/2019 CHIEF COMPLAINTS: Weakness and as well as left shoulder pain, elevated troponin. HISTORY OF PRESENT ILLNESS: This 84-year-old gentleman with a past medical history of GI bleed, hypertension, hyperlipidemia, macular degeneration being followed by Dr. Ashley Chavez in the outpatient setting was admitted to the hospital a couple months ago with cardiac catheterization which showed no significant CAD. The patient also had respiratory difficulties also. The patient was apparently getting cardiac rehab and currently patient complaining of some weakness and also complains of pain in her shoulders. Patient also on taken to [facility] and found to have troponin of 0.048, which is also mildly elevated, during the previous admission went up to 0.355. The patient admitted to the hospital for further evaluation and treatment. A BNP level was found to be 140 and a chest x-ray which was reviewed personally by me showed possibly COPD and large hiatal hernia. The EKG showed right bundle branch block. There is no history of fever, rigors. No history of headache, loss of consciousness, seizures at this time. PAST MEDICAL HISTORY: History of GI bleed, hypertension, hyperlipidemia, macular degeneration, history of recent cardiac catheterization which showed no significant coronary artery disease. MEDICATIONS: Prior to admission include home medications are: 1. Flonase nasal spray 1 spray b.i.d. p.r.n. 2. Tylenol Extra Strength 500 mg p.o. q.8 p.r.n. 3. Hyzaar 50/12.5 mg 1 p.o. daily. 4. Aspirin 81 mg p.o. daily. 5. Vitamin C, E, zinc, copper, lutein, Ziox 1 capsule b.i.d. 6. Albuterol 1 puff q.i.d. ALLERGIES: None. FAMILY HISTORY: No history of heart disease or strokes in the family. SOCIAL HISTORY: Previous history of smoking. No history of current smoking or alcohol intake. REVIEW OF SYSTEMS: ENT diminished hearing. Diminished vision. CARDIOVASCULAR system as mentioned earlier. RESPIRATORY: As mentioned earlier. GI no nausea or vomiting. no dysuria. NERVOUS SYSTEM: As mentioned earlier. ALLERGY/IMMUNOLOGY: No history of asthma, or hay fever. MUSCULOSKELETAL as mentioned earlier. HEMATOLOGY/ONCOLOGY: No history of anemia. ENDOCRINE: No history of diabetes or hypothyroidism. CONSTITUTIONAL: As mentioned earlier. DERMATOLOGY: Negative. RHEUMATOLOGY: Negative. PSYCHIATRIC: As mentioned earlier. PHYSICAL EXAMINATION: Alert and oriented x2. Pulse is 99, blood pressure 150/83, respiration 18, temp 97.4, pulse ox 94% on room air. HEENT: Conjunctivae normal. Oral mucosa moist. NECK: Neck is jugular distention at the root of the neck. No carotid bruit. No lymph node enlargement. CARDIOVASCULAR: S1, S2 muffled. No S3, no S4. RESPIRATORY: Breath sounds diminished in the bases. Bilateral scattered rhonchi and crackles. ABDOMEN: Soft, nontender. No mass palpable. LEGS: No edema. No swelling. NERVOUS SYSTEM: Higher functions as mentioned earlier. Moves all 4 limbs. No focal motor or sensory deficits. LYMPHATICS: No lymph nodes palpable in the neck, axillae or groin. SKIN: No ulcer, rash or bleeding. JOINTS no active deforming arthropathy. LAB STUDIES: WBC 12.2, hemoglobin 12.6, sodium 138, potassium 4.6 and BUN is 28, creatinine 0.81. Troponin 0.048. ASSESSMENT: 1. Weakness and shoulder pain for evaluation, rule out acute npu-BX-hysewot-elevation myocardial infarction. 2. Elevated troponin up to 0.048. 3. Recent cardiac catheterization showing no significant coronary disease. 4. Shortness of breath possibly chronic obstructive pulmonary disease acute exacerbation. 5. Increased WBC. 6. Mild anemia normocytic anemia of chronic disease. 7. Remote history of nicotine dependence. 8. History of hypertension. 9. History of hyperlipidemia. 10.History of gastrointestinal bleed. 11.History of macular degeneration. 12.Gait dysfunction. 13.Remote history of nicotine dependence. RECOMMENDATIONS AND DISCUSSION: This 84-year-old gentleman who presented with multiple complex medical issues, we will monitor the patient closely. Continue the current management and resume the home medications. Antiplatelet agents. Heparin has been initiated. Cardiology consultation. Also recommend bronchodilators. PT/OT evaluation, possible ECF rehab. Prognosis guarded because of multiple complex medical issues. A copy of this dictation forwarded to Dr. Ashley Chavez who is the primary physician. MMODL / IJN: [id number] /
[2019-10-01] MEDS: SYMBICORT 160-4.5 MCG INHALER INHALATION SCH (19:58)
[2019-10-01] MEDS: IPRATROPIUM-ALBUTEROL 3 ML NEB INHALATION SCH (19:58)
[2019-10-01] MEDS: HEPARIN SODIUM,PORCINE 5,000 UNIT/ML 1 ML VIAL SQ SCH (21:21)
[2019-10-01] MEDS: METOPROLOL TARTRATE 25 MG TAB PO SCH (21:39)
[2019-10-01] MEDS: VIT A,C & E-LUTEIN-MINERALS 1 EACH TAB PO SCH (21:39)
--- NOTE | 2019-10-02 00:31 | CONS ---
CONSULTATION Mr. Reyes is an 84-year-old male who presented to the emergency room with symptoms of what he described as achiness in the back, the abdomen and the right side of the chest. He was in the hospital end of June of this year and at that time had elevation of his troponin. His echocardiogram during his last hospitalization revealed a normal left ventricular size and systolic function and he subsequently underwent cardiac catheterization by Dr. Greta Estrada because of the troponin elevation and there was no evidence of obstructive coronary artery disease. Patient discomfort in the back appears to be positional. He has right-sided discomfort and abdominal discomfort. He is vague about the history but does not appear to be exertional in pattern. He has dyspnea on exertion. He denies any palpitation. He has occasional dizziness. No PND. No orthopnea. No peripheral edema. His coronary risk factors are remarkable for hypertension. He is nonsmoker, nondiabetic. MEDICATIONS: His medications include aspirin, Hyzaar 50/12.5 mg daily, Flonase, Ventolin and Tylenol. REVIEW OF SYSTEMS: RESPIRATORY SYSTEM: He had dyspnea on exertion. No recent wheezing or cough. GI SYSTEM: No recent GI bleeding. No peptic ulcer disease. SYSTEM: No dysuria or hematuria. NERVOUS SYSTEM: No stroke or seizure. PHYSICAL EXAMINATION: He is an 84-year-old male, alert, oriented, in no apparent distress. Blood pressure running in the 130s to 150s with the heart rate in 90s and low 100. HEAD: Normocephalic. EYES: Sclerae anicteric. NECK: Good upstroke. No bruit. No jugular venous distention. LUNGS: Clear to auscultation. HEART: Regular rate and rhythm. S1, S2. No S3 with systolic murmur heard at the base. No diastolic murmur. No rub. ABDOMEN: Soft, nontender. Positive bowel sounds. No organomegaly. EXTREMITIES: No edema. LAB DATA: EKG reveals sinus mechanism, rate of 94, right bundle branch block. The right bundle branch block is new compared to his last presentation. White blood cell of 12.5, hemoglobin of 12.6, BUN and creatinine 28 and 0.81. The troponin 0.048. During the last admission, his troponin was up to 0.355. His NT proBNP is 140. His chest x-ray shows a large hiatal hernia. IMPRESSION: 1. Chest discomfort and abdominal discomfort of unclear etiology. The patient had no evidence of obstructive coronary disease by cardiac catheterization during his last admission. The troponin elevation was noted in the past. 2. Right bundle branch block was not noted during the last admission, could be rate- related right bundle branch block. 3. History of hypertension. 4. Hiatal hernia. RECOMMENDATION: From the cardiac standpoint, will follow his cardiac enzymes. I do not see any indication to repeat his cardiac testing. I will add to his regimen oral nitrate for the possible vasospastic disease as well as low dose of a beta lexie. We will continue on PPI and depending on the his progress, further recommendation will be made. Thank you for this consult. We will follow with you. MMODL / IJN: [id number] /
[2019-10-02 07:24] LABS: Basophils % (A) 0 %; Eosinophils % (A) 0 %; HCT 33.7 % (39.0-53.0); HGB 10.4 gm/dL (13.0-17.5); Hypochromasia Slight; Lymphocytes # (A) 0.6 k/uL (1.0-4.8); Lymphocytes % (A) 10 %; MCH 29.1 pg (25.0-35.0); MCHC 30.8 g/dL (31.0-37.0); MCV 94.6 fL (80.0-100.0); Mean Platelet Volume 7.3; Monocytes # (A) 0.1 k/uL (0-1.0); Monocytes % (A) 2 %; Neutrophils # (A) 5.5 k/uL (1.3-7.7); Neutrophils % (A) 87 %; Platelet Count 385 k/uL (150-450); RBC 3.56 m/uL (4.30-5.90); RDW 14.3 % (11.5-15.5); WBC 6.3 k/uL (3.8-10.6)
[2019-10-02] MEDS ORDERED: PANTOPRAZOLE 40 MG TABLET PO SCH (07:30)
[2019-10-02 07:38] LABS: African American GFR (CKD) >90 (>60 ml/min/1.73 sqM); Anion Gap 4 mmol/L; Blood Urea Nitrogen 29 mg/dL (9-20); Calcium 8.6 mg/dL (8.4-10.2); Carbon Dioxide 30 mmol/L (22-30); Chloride 101 mmol/L (98-107); Cholesterol 129 mg/dL (<200); Glucose 143 mg/dL (74-99); HDL Cholesterol 41 mg/dL (40-60); LDL Cholesterol,Calculated 76 mg/dL (0-99); Non-African American GFR(CKD) 88 (>60 ml/min/1.73 sqM); Potassium 4.4 mmol/L (3.5-5.1); Sodium 135 mmol/L (137-145); Triglycerides 61 mg/dL (<150)
[2019-10-02] MEDS: IPRATROPIUM-ALBUTEROL 3 ML NEB INHALATION SCH ×2 (08:28→13:21)
[2019-10-02] MEDS: SYMBICORT 160-4.5 MCG INHALER INHALATION SCH (08:29)
[2019-10-02] MEDS ORDERED: ASPIRIN 81 MG PO SCH (09:00)
[2019-10-02] MEDS ORDERED: ASPIRIN 325 MG TAB PO SCH (09:00)
[2019-10-02] MEDS ORDERED: LOSARTAN-HCTZ 50-12.5 MG 1 EACH TAB PO SCH (09:00)
[2019-10-02] MEDS: HEPARIN SODIUM,PORCINE 5,000 UNIT/ML 1 ML VIAL SQ SCH (09:28)
[2019-10-02 10:17] VITALS: TEMP 97.5
[2019-10-02] MEDS: VIT A,C & E-LUTEIN-MINERALS 1 EACH TAB PO SCH (10:19)
[2019-10-02] MEDS: ISOSORBIDE MONONITRATE ER 30 MG TAB.ER.24H PO SCH (10:20)
[2019-10-02] MEDS: SODIUM CHLORIDE 0.9% 1,000 ML IV SCH (10:21)
[2019-10-02] MEDS: METOPROLOL TARTRATE 25 MG TAB PO SCH (10:21)
[2019-10-02 11:36] VITALS: BP 121/65; RESP 18
--- NOTE | 2019-10-02 12:26 | PN ---
PROGRESS NOTE Mr. Reyes is an 84-year-old male who presented to the emergency room with symptoms of back and chest discomfort. He has underwent cardiac catheterization recently by Dr. Greta Estrada and was found to have no evidence of obstructive coronary artery disease. He is feeling well this morning. He has some right-sided lower chest discomfort, positional. He denies any dizziness, palpitation. He denies any nausea. He continues to be at this time on aspirin once a day, isosorbide mononitrate 30 mg daily, losartan 50-12.5 mg daily, metoprolol tartrate 25 mg twice a day, Protonix. PHYSICAL EXAMINATION: Blood pressure 140/60 with a heart rate in the 90s. LUNGS: Clear. HEART: Regular rate and rhythm, S1, S2. No S3. No rub. ABDOMEN: Soft, nontender. EXTREMITIES: No edema. LAB DATA: Revealed a BUN and creatinine of 29 and 0.7, hemoglobin of 10.4, potassium 4.4. Her troponins 0.048, 0.041, 0.036. IMPRESSION: 1. Chest discomfort of unclear etiology. 2. Mild troponin elevation of unclear significance. Patient underwent cardiac catheterization recently and was found to have no evidence of significant obstructive disease with preserved systolic function. 3. History of hypertension. 4. Hiatal hernia. RECOMMENDATION: From the cardiac standpoint, will increase his activity. I see no indication to undergo further cardiac workup at this time. He will follow up as an outpatient with Dr. Estrada. MMODL / IJN: [id number] /
[2019-10-02 13:23] VITALS: PULSE 90
--- NOTE | 2019-10-04 08:22 | P.DS ---
Providers Date of admission: 10/01/19 15:24 Expected date of discharge: 10/02/19 Attending physician: Ian Mcmillan Consults: 10/01/19 15:12 Consult Physician Urgent Consulting Provider: Dale Brandt Consult Reason/Comments: NSTEMI, Chest pain Do you want consulting provider notified?: Yes Primary care physician: [facility] Course: Final diagnosis Weakness and shoulder pain, ruled out acute non-ST segment elevation myocardial infarction Elevated troponin up to 0.048 with recent cardiac catheterization showing no significant coronary artery disease Shortness of breath possibly COPD acute exacerbation Increased WBC Mild anemia normocytic anemia of chronic disease Remote history of nicotine dependence Gait dysfunction Hypertension Hyperlipidemia Discharge disposition Patient is being discharged in a stable condition with guarded prognosis to home and will follow-up with Dr. Martins in the outpatient setting. Patient will continue on a prednisone taper to her maintenance 10 mg dose. Total time taken is 35 minutes. History of present illness This is a 84-year-old male who was recently admitted with weakness, pain in bilateral shoulders and was being closely monitored. Patient was also found to have a mildly elevated troponin and was evaluated by cardiology. Patient recently underwent cardiac catheterization and was undergoing cardiac rehab. Cardiology recommending continuing current management and adding a low-dose beta lexie and will follow-up closely in the outpatient setting. Patient recently underwent cardiac catheterization and was undergoing cardiac rehab. Patient was seen and evaluated by physical therapy and patient would like to continue with physical therapy in the outpatient setting with home care. Family is agreeable to this as well. Patient does not want to go to a rehab facility. Currently no reports of chest pain, shortness of breath, or palpitations. Patient is afebrile. No reports of nausea or vomiting and patient is tolerating diet. Patient is alert and oriented 3. Patient will be discharged home today. On exam vital signs are stable. Temp is 97.5F, pulse is 93, respirations are 18, blood pressure is 121/65, oxygen saturation is 95% on 2-3 L via nasal cannula. Cardio S1, S2 are present. Respiratory shows diminished breath sounds at the bases with some rhonchi noted. Abdomen is soft and nontender. Nervous system shows no focal deficits. Please refer to medication reconciliation sheet for a list of medications. Patient Condition at Discharge: Stable Plan - Discharge Summary Discharge Rx Participant: No New Discharge Prescriptions: New Isosorbide Mononitrate ER [Imdur] 30 mg PO DAILY 30 Days #30 tab.er.24h Metoprolol Tartrate [Lopressor] 25 mg PO BID 30 Days #60 tab Nitroglycerin Sl Tabs [Nitrostat] 0.4 mg SUBLINGUAL Q5M PRN #28 tab PRN Reason: Chest Pain Budesonide-Formot 160-4.5 Mcg [Symbicort 160-4.5 Mcg Inhaler] 2 puff INHALATION RT-BID 30 Days #1 puff Continue Vit C/E/Zn/Coppr/Lutein/Zeaxan [Preservision Areds 2 Softgel] 1 cap PO BID Losartan-Hctz 50-12.5 mg [Hyzaar 50-12.5] 1 tab PO DAILY Aspirin 81 mg PO DAILY chew Albuterol Inhaler [Ventolin Hfa Inhaler] 1 puff INHALATION RT-QID #1 puff Fluticasone Nasal [place] [Flonase Nasal [place]] 1 spray EA NOSTRIL BID PRN PRN Reason: Allergy Symptoms Acetaminophen [Tylenol Extra Strength] 500 mg PO Q8H PRN PRN Reason: Pain Discharge Medication List Losartan-Hctz 50-12.5 mg [Hyzaar 50-12.5] 1 tab PO DAILY 07/24/19 [History] Vit C/E/Zn/Coppr/Lutein/Zeaxan [Preservision Areds 2 Softgel] 1 cap PO BID 07/24/19 [History] Albuterol Inhaler [Ventolin Hfa Inhaler] 1 puff INHALATION RT-QID #1 puff 07/27/19 [Rx] Aspirin 81 mg PO DAILY chew 07/27/19 [Rx] Acetaminophen [Tylenol Extra Strength] 500 mg PO Q8H PRN 10/01/19 [History] Fluticasone Nasal [place] [Flonase Nasal [place]] 1 spray EA NOSTRIL BID PRN 10/01/19 [History] Budesonide-Formot 160-4.5 Mcg [Symbicort 160-4.5 Mcg Inhaler] 2 puff INHALATION RT-BID 30 Days #1 puff 10/02/19 [Rx] Isosorbide Mononitrate ER [Imdur] 30 mg PO DAILY 30 Days #30 tab.er.24h 10/02/19 [Rx] Metoprolol Tartrate [Lopressor] 25 mg PO BID 30 Days #60 tab 10/02/19 [Rx] Nitroglycerin Sl Tabs [Nitrostat] 0.4 mg SUBLINGUAL Q5M PRN #28 tab 10/02/19 [Rx] Follow up Appointment(s)/Referral(s): Danilo Estrada MD [STAFF PHYSICIAN] - 10/17/19 2:30 pm (TuesdayOctober 30 Appointment cancelled) Ashley Chavez MD [Primary Care Provider] - 1-2 days (Offices are closed at this time. Please call to make a follow up appointment.) [facility], [NON-STAFF] - Patient Instructions/Handouts: Hypoxia (ED) Discharge Disposition: HOME WITH HOME HEALTH SERVICES
== END 2019-10-02 19:22 | disposition home health service (06) | DRG 313 ==
LOC: EC 12:09 → 3SCARD 15:24
PROVIDERS: ADMIT Hospitalist; ATTEND Hospitalist
DX: R07.9 Chest pain, unspecified (principal); D63.8 Anemia in other chronic diseases classified elsewhere; E78.5 Hyperlipidemia, unspecified; H35.30 Unspecified macular degeneration; I10 Essential (primary) hypertension; I45.10 Unspecified right bundle-branch block; K44.9 Diaphragmatic hernia without obstruction or gangrene; M25.512 Pain in left shoulder; R26.9 Unspecified abnormalities of gait and mobility; R79.89 Other specified abnormal findings of blood chemistry; Z11.59 Encounter for screening for other viral diseases; J44.9 Chronic obstructive pulmonary disease, unspecified; H54.7 Unspecified visual loss; H91.90 Unspecified hearing loss, unspecified ear; Z79.82 Long term (current) use of aspirin; Z79.899 Other long term (current) drug therapy; Z87.891 Personal history of nicotine dependence
CPT/HCPCS: 36415; 71046; 80048; 80053; 80061; 81001; 82330; 83605; 83880; 84443; 84484; 85025; 85610; 85730; 93005; 94640; 96361; 96365; 96375; 96376; 99285

== ENCOUNTER 2019-10-05 17:27 | Inpatient (IN) | payer MEDICARE ==
[2019-10-05] MEDS ORDERED: SODIUM CHLORIDE 0.9% 500 ML 500 ML IV STA (18:33)
[2019-10-05] MEDS ORDERED: MORPHINE SULFATE 4 MG/ML SYRINGE IV STA (18:33)
[2019-10-05] MEDS ORDERED: ASPIRIN 81 MG PO STA (18:35)
--- NOTE | 2019-10-05 19:27 | XR ---
EXAMINATION TYPE: XR ribs bilat w pa chest xray DATE OF EXAM: 10/05/2019 COMPARISON: Chest x-ray 10/01/2019 HISTORY: Pain TECHNIQUE: 9 views FINDINGS: Heart is normal. Lungs are clear of infiltrate. There is no pleural effusion or pneumothora x. There is some deformity of the left clavicle consistent with old fracture. I see no acute rib frac ture. There are no hilar masses. There is some deformity right fifth rib consistent with old injury. IMPRESSION: No active cardiopulmonary disease. No acute bony abnormality. Old left clavicle fracture.
--- NOTE | 2019-10-05 19:28 | XR ---
EXAMINATION TYPE: XR lumbar spine 2 or 3V DATE OF EXAM: 10/05/2019 COMPARISON: NONE HISTORY: Pain all over TECHNIQUE: 3 views FINDINGS: There is osteopenia. There is biconcave change of L4 vertebra with 25% loss of height. Ther e is anterior wedging of L1 vertebra with 30% loss of height. The sacroiliac joints appear intact. IMPRESSION: Compression fractures. There is appearance of osteoporosis and osteomalacia. Age of the f ractures is not clear.
--- NOTE | 2019-10-05 19:30 | XR ---
EXAMINATION TYPE: XR thoracic spine complete DATE OF EXAM: 10/05/2019 COMPARISON: Chest CT scan 07/26/2019 HISTORY: Pain TECHNIQUE: 3 views. Thoracic vertebra have normal alignment. There is anterior wedging of T6 vertebra up to 50%. There is no evidence of paraspinal mass. There is anterior wedging 25% of L1 vertebra. Posterior elements are intact. IMPRESSION: Compression fracture of T6 has progressed compared to chest CT scan.
--- NOTE | 2019-10-05 19:33 | XR ---
EXAMINATION TYPE: XR shoulder complete BILAT DATE OF EXAM: 10/05/2019 COMPARISON: NONE HISTORY: Bilateral shoulder pain TECHNIQUE: 3 views each shoulder FINDINGS: There is fracture of the lateral and of the left clavicle with some minimal callus. The glenohumeral joints are anatomic. The scapula appear intact. There is some spurring on the right humeral head. IMPRESSION: Mild osteoarthritis. There is healing fracture lateral and of the left clavicle without c hange in position compared to chest x-ray 07/24/2019.
[2019-10-05 20:24] LABS: ALT 25 U/L (4-49); AST 36 U/L (17-59); African American GFR (CKD) >90 (>60 ml/min/1.73 sqM); Albumin 3.2 g/dL (3.5-5.0); Alkaline Phosphatase 81 U/L (38-126); Anion Gap 7 mmol/L; Blood Urea Nitrogen 25 mg/dL (9-20); Carbon Dioxide 29 mmol/L (22-30); Chloride 96 mmol/L (98-107); Glucose 131 mg/dL (74-99); Non-African American GFR(CKD) >90 (>60 ml/min/1.73 sqM); Potassium 3.8 mmol/L (3.5-5.1); Sodium 132 mmol/L (137-145); Total Bilirubin 0.8 mg/dL (0.2-1.3); Total Protein 6.2 g/dL (6.3-8.2)
[2019-10-05 20:27] LABS: HCT 34.6 % (39.0-53.0); HGB 11.2 gm/dL (13.0-17.5); MCHC 32.4 g/dL (31.0-37.0); MCV 92.6 fL (80.0-100.0); Mean Platelet Volume 7.4; Platelet Count 461 k/uL (150-450); RBC 3.74 m/uL (4.30-5.90); WBC 14.6 k/uL (3.8-10.6)
[2019-10-05 20:33] LABS: Appearance,Urine Clear (Clear); Bacteria,Urine Rare /hpf; Bilirubin,Urine Negative (Negative); Blood,Urine Negative (Negative); Color,Urine Yellow; Glucose,Urine (UA) Negative (Negative); Ketones,Urine Negative (Negative); Leukocyte Esterase,Urine Small (Negative); Mucus,Urine Rare /hpf; Nitrite,Urine Negative (Negative); PH, Urine 5.5 (5.0-8.0); Protein,Urine Negative (Negative); RBC,Urine 2 /hpf (0-5); Specific Gravity,Urine 1.013 (1.001-1.035); WBC,Urine 5 /hpf (0-5)
[2019-10-05 21:19] LABS: Lymphocytes # (M) 1.17 k/uL (1.0-4.8); Monocytes # (M) 1.17 k/uL (0-1.0); Neutrophils # (M) 12.26 k/uL (1.3-7.7); Neutrophils % (M) 84 %; Nucleated Red Blood Cells 0 /100 WBC (0-0); Total Cells Counted 100
--- NOTE | 2019-10-05 23:21 | CT ---
EXAMINATION TYPE: CT chest angio for PE DATE OF EXAM: 10/05/2019 COMPARISON: 07/26/2019 HISTORY: elevated d dimer. CT DLP: 417.4 mGycm Automated exposure control for dose reduction was used. CONTRAST: Performed with IV Contrast, patient injected with 65 mL of Isovue 370. There are 3-D post processed images. There is diffuse pulmonary emphysema. There is some linear density at the lung bases consistent with scarring and atelectasis. There is no pericardial effusion. There is no pleural effusion. There is hi atal hernia. There is no mediastinal adenopathy. There are no hilar masses. There is 40% compression fracture of L1 vertebral body with biconcave deformity. There is 25% wedging of T6 vertebra. There is also wedging of T3 vertebra 25%. There is no evidence of filling defect in the pulmonary arteries. Thoracic aorta shows no aneurysm or dissection. IMPRESSION: No evidence of pulmonary embolism. Basilar pulmonary scarring and atelectasis increased slightly comp ared to old exam. Multiple compression fractures have progressed compared to old exam. Pulmonary emphysema.
[2019-10-05] MEDS ORDERED: SODIUM CHLORIDE 0.9% 500 ML 250 ML IV ONE (23:37)
--- NOTE | 2019-10-05 23:38 | ED ---
General Adult HPI - General Chief complaint: Weakness Stated complaint: pain all over Time Seen by Provider: 10/05/19 18:13 Source: patient, RN notes reviewed, old records reviewed Mode of arrival: wheelchair Limitations: no limitations - History of Present Illness Initial comments: 85-year-old male patient past history significant for hypertension, rheumatoid arthritis, status post splenectomy presents to ED for chief complaint of pain all over. Patient reports that he has pain in his thoracic and lumbar spine. Reports pain in his right ribs, right shoulder, left shoulder. Denies any difficulty breathing. Denies any recent falls or trauma. Denies any other complaints. Systemic: Pt denies fatigue, fever/chills, rash. Pt denies weakness, night sweats, weight loss. Neuro: Pt denies headache, visual disturbances, syncope or pre-syncope. HEENT: Pt denies ocular discharge or irritation, otalgia, rhinorrhea, pharyngitis or notable lymphadenopathy. Cardiopulmonary: Pt denies SOB, heart palpitations, dyspnea on exertion. Abdominal/GI: Pt denies abdominal pain, n/v/d. : Pt denies dysuria, burning w/ urination, frequency/urgency. Denies new onset urinary or bowel incontinence. Neuro: Pt denies new onset weakness, paresthesias. - Related Data Home Medications Medication Instructions Recorded Confirmed Losartan-Hctz 50-12.5 mg [Hyzaar 1 tab PO DAILY 07/24/19 10/01/19 50-12.5] Vit C/E/Zn/Coppr/Lutein/Zeaxan 1 cap PO BID 07/24/19 10/01/19 [Preservision Areds 2 Softgel] Acetaminophen [Tylenol Extra 500 mg PO Q8H PRN 10/01/19 10/01/19 Strength] Fluticasone Nasal [place] [Flonase 1 spray EA NOSTRIL BID PRN 10/01/19 10/01/19 Nasal [place]] Previous Rx's Medication Instructions Recorded Albuterol Inhaler [Ventolin Hfa 1 puff INHALATION RT-QID #1 puff 07/27/19 Inhaler] Aspirin 81 mg PO DAILY chew 07/27/19 Budesonide-Formot 160-4.5 Mcg 2 puff INHALATION RT-BID 30 Days 10/02/19 [Symbicort 160-4.5 Mcg Inhaler] #1 puff Isosorbide Mononitrate ER [Imdur] 30 mg PO DAILY 30 Days #30 10/02/19 tab.er.24h Metoprolol Tartrate [Lopressor] 25 mg PO BID 30 Days #60 tab 10/02/19 Nitroglycerin Sl Tabs [Nitrostat] 0.4 mg SUBLINGUAL Q5M PRN #28 tab 10/02/19 Allergies Allergy/AdvReac Type Severity Reaction Status Date / Time No Known Allergies Allergy Verified 10/05/19 17:59 Review of Systems ROS Statement: Those systems with pertinent positive or pertinent negative responses have been documented in the HPI. ROS Other: All systems not noted in ROS Statement are negative. Past Medical History Past Medical History: Eye Disorder, GI Bleed, Hypertension, Rheumatoid Arthritis (RA) Additional Past Medical History / Comment(s): Lower GI bleed/diverticular disease with severe anemia/surgery, bilateral macular degeneration with some vision loss, pt denies hyperlipidemia. History of Any Multi-Drug Resistant Organisms: None Reported Past Surgical History: Bowel Resection, Tonsillectomy Additional Past Surgical History / Comment(s): Laparotomy/low anterior resection/splenectomy 2ndary to severe bleeding, colonoscopy Past Anesthesia/Blood Transfusion Reactions: No Reported Reaction Additional Past Anesthesia/Blood Transfusion Reaction / Comment(s): Pt has received blood in past without reaction. Past Psychological History: No Psychological Hx Reported Smoking Status: Former smoker - Past Family History Father Additional Family Medical History / Comment(s): Father drank heavily. He was healthy and lived into his 80s. Mother Family Medical History: No Reported History General Exam - General Exam Comments Initial Comments: Constitutional: NAD, AOX3, Pt has pleasant affect. HEENT: NC/AT, trachea midline, neck supple, no lymphadenopathy. Posterior pharynx non erythematous, without exudates. External ears appear normal, without discharge. Mucous membranes moist. Eyes PERRLA, EOM intact. There is no scleral icterus. No pallor noted. Cardiopulmonary: RRR, no murmurs, rubs or gallops, no JVD noted. Lungs CTAB in anterior and posterior fuller. No peripheral edema. Abdominal exam: Abdomen soft and non-distended. Abdomen non-tender to palpation in all 4 quadrants. Bowel sounds active in LLQ. No hepatosplenomegaly. No ecchymosis Neuro: CN II-XII grossly intact. No nuchal rigidity. No raccon eyes, no cisse sign, no hemotympanum. No cervical spinal tenderness. MSK: Thoracic back region is mild tender to palpation. ROM of legs and sensation intact. Limitations: no limitations Course Vital Signs 10/05/19 10/05/19 10/05/19 17:54 19:38 20:00 Temperature 98 F Pulse Rate 103 H 118 H 113 H Respiratory 20 20 20 Rate Blood Pressure 126/65 120/72 123/65 O2 Sat by Pulse 91 L 100 100 Oximetry 10/05/19 10/05/19 10/05/19 21:00 21:30 21:55 Temperature Pulse Rate 116 H 110 H 114 H Respiratory 20 20 20 Rate Blood Pressure 122/69 128/68 135/70 O2 Sat by Pulse 97 97 97 Oximetry 10/05/19 10/05/19 22:00 23:00 Temperature Pulse Rate 114 H 112 H Respiratory 20 20 Rate Blood Pressure 125/73 139/73 O2 Sat by Pulse 97 98 Oximetry Medical Decision Making - Medical Decision Making 85-year-old male patient past history significant for hypertension, rheumatoid arthritis, status post splenectomy presents to ED for chief complaint of pain all over. Patient reports that he has pain in his thoracic and lumbar spine. Reports pain in his right ribs, right shoulder, left shoulder. Denies any difficulty breathing. Denies any recent falls or trauma. Denies any other com plaints. Patient also has a mild tachycardia otherwise stable. Laboratory investigations were obtained. Significant white count of 14.6 with left shift. Troponin is negative. UA displayed small leukocyte esterase, 5 white cells, 2 red cells. Plain films were obtained. Right shoulder complete bilaterally displayed mild osteoarthritis, healing fracture of the left clavicle which does not appear changed from 07/24/19. Thoracic spine display compression fracture T6 which has progressed compared to CAT scan. Lumbar x-rays displayed compression fractures. Ribs with chest x-ray displayed no active cardiopulmonary disease. Old left clavicle fracture. Patient remained tachycardic a d-dimer was ordered. This was found to be elevated. CT angiography was then obtained. Did not display any evidence of PE. EKG slight sinus tachycardia right bundle- branch block. Patient pain is likely musculoskeletal in nature. Troponins have will be trended. Patient be admitted for further evaluation and orthopedic consult. Case discussed with Dr. Nj. - Lab Data Result diagrams: 10/05/19 20:00 10/05/19 20:00 Lab Results 10/05/19 10/05/19 10/05/19 Range/Units 19:44 20:00 20:00 WBC 14.6 H (3.8-10.6) k/uL RBC 3.74 L (4.30-5.90) m/uL Hgb 11.2 L (13.0-17.5) gm/dL Hct 34.6 L (39.0-53.0) % MCV 92.6 (80.0-100.0) fL MCH 30.0 (25.0-35.0) pg MCHC 32.4 (31.0-37.0) g/dL RDW 14.0 (11.5-15.5) % Plt Count 461 H (150-450) k/uL Neutrophils % (Manual) 84 % Lymphocytes % (Manual) 8 % Monocytes % (Manual) 8 % Neutrophils # (Manual) 12.26 H (1.3-7.7) k/uL Lymphocytes # (Manual) 1.17 (1.0-4.8) k/uL Monocytes # (Manual) 1.17 H (0-1.0) k/uL Nucleated RBCs 0 (0-0) /100 WBC Manual Slide Review Performed RBC Morphology Normal D-Dimer (<0.60) mg/L FEU Sodium 132 L (137-145) mmol/L Potassium 3.8 (3.5-5.1) mmol/L Chloride 96 L (98-107) mmol/L Carbon Dioxide 29 (22-30) mmol/L Anion Gap 7 mmol/L BUN 25 H (9-20) mg/dL Creatinine 0.64 L (0.66-1.25) mg/dL Est GFR (CKD-EPI)AfAm >90 (>60 ml/min/1.73 sqM) Est GFR (CKD-EPI)NonAf >90 (>60 ml/min/1.73 sqM) Glucose 131 H (74-99) mg/dL Plasma Lactic Acid Micheal (0.7-2.0) mmol/L Calcium 9.0 (8.4-10.2) mg/dL Total Bilirubin 0.8 (0.2-1.3) mg/dL AST 36 (17-59) U/L ALT 25 (4-49) U/L Alkaline Phosphatase 81 (38-126) U/L Troponin I (0.000-0.034) ng/mL Total Protein 6.2 L (6.3-8.2) g/dL Albumin 3.2 L (3.5-5.0) g/dL Lipase 56 (23-300) U/L Urine Color Yellow Urine Appearance Clear (Clear) Urine pH 5.5 (5.0-8.0) Ur Specific [place] 1.013 (1.001-1.035) Urine Protein Negative (Negative) Urine Glucose (UA) Negative (Negative) Urine Ketones Negative (Negative) Urine Blood Negative (Negative) Urine Nitrite Negative (Negative) Urine Bilirubin Negative (Negative) Urine Urobilinogen 2.0 (<2.0) mg/dL Ur Leukocyte Esterase Small H (Negative) Urine RBC 2 (0-5) /hpf Urine WBC 5 (0-5) /hpf Urine Bacteria Rare H (None) /hpf Urine Mucus Rare H (None) /hpf 10/05/19 10/05/19 10/05/19 Range/Units 20:00 20:00 21:53 WBC (3.8-10.6) k/uL RBC (4.30-5.90) m/uL Hgb (13.0-17.5) gm/dL Hct (39.0-53.0) % MCV (80.0-100.0) fL MCH (25.0-35.0) pg MCHC (31.0-37.0) g/dL RDW (11.5-15.5) % Plt Count (150-450) k/uL Neutrophils % (Manual) % Lymphocytes % (Manual) % Monocytes % (Manual) % Neutrophils # (Manual) (1.3-7.7) k/uL Lymphocytes # (Manual) (1.0-4.8) k/uL Monocytes # (Manual) (0-1.0) k/uL Nucleated RBCs (0-0) /100 WBC Manual Slide Review RBC Morphology D-Dimer 1.58 H (<0.60) mg/L FEU Sodium (137-145) mmol/L Potassium (3.5-5.1) mmol/L Chloride (98-107) mmol/L Carbon Dioxide (22-30) mmol/L Anion Gap mmol/L BUN (9-20) mg/dL Creatinine (0.66-1.25) mg/dL Est GFR (CKD-EPI)AfAm (>60 ml/min/1.73 sqM) Est GFR (CKD-EPI)NonAf (>60 ml/min/1.73 sqM) Glucose (74-99) mg/dL Plasma Lactic Acid Micheal 1.3 (0.7-2.0) mmol/L Calcium (8.4-10.2) mg/dL Total Bilirubin (0.2-1.3) mg/dL AST (17-59) U/L ALT (4-49) U/L Alkaline Phosphatase (38-126) U/L Troponin I <0.012 (0.000-0.034) ng/mL Total Protein (6.3-8.2) g/dL Albumin (3.5-5.0) g/dL Lipase (23-300) U/L Urine Color Urine Appearance (Clear) Urine pH (5.0-8.0) Ur Specific [place] (1.001-1.035) Urine Protein (Negative) Urine Glucose (UA) (Negative) Urine Ketones (Negative) Urine Blood (Negative) Urine Nitrite (Negative) Urine Bilirubin (Negative) Urine Urobilinogen (<2.0) mg/dL Ur Leukocyte Esterase (Negative) Urine RBC (0-5) /hpf Urine WBC (0-5) /hpf Urine Bacteria (None) /hpf Urine Mucus (None) /hpf - EKG Data -: EKG Interpreted by Me (and Dr. Nj ) EKG Comments: Ventricular rate 115, NE interval 138, QRS 122, QT/QTC 358/495. Sinus tachycardia, right bundle branch block. Abnormal EKG. Disposition Clinical Impression: Compression fracture, Clavicle fracture Disposition: ADMITTED IP TO THIS [facility] Condition: Serious Is patient prescribed a controlled substance at d/c from ED?: No Referrals: Ashley Chavez MD [Primary Care Provider] - 1-2 days
[2019-10-05] MEDS ORDERED: NALOXONE 0.4 MG/ML 1 ML VIAL IV PRN (23:40)
[2019-10-06] MEDS: MORPHINE SULFATE 4 MG/ML SYRINGE IV PRN ×3 (02:43→13:58)
[2019-10-06] MEDS ORDERED: NITROGLYCERIN SL TABS 0.4 MG TAB SUBLINGUAL PRN (11:17)
[2019-10-06] MEDS ORDERED: FLUTICASONE 50MCG/SPRAY NASAL 16GM EA NOSTRIL PRN (11:17)
[2019-10-06] MEDS ORDERED: ACETAMINOPHEN TAB 500 MG TAB PO PRN (11:17)
[2019-10-06 11:33] LABS: Basophils % (A) 0 %; Eosinophils # (A) 0.1 k/uL (0-0.7); Eosinophils % (A) 0 %; HCT 36.2 % (39.0-53.0); HGB 11.2 gm/dL (13.0-17.5); Hypochromasia Marked; Lymphocytes % (A) 6 %; MCH 29.5 pg (25.0-35.0); MCHC 30.9 g/dL (31.0-37.0); MCV 95.3 fL (80.0-100.0); Mean Platelet Volume 7.9; Monocytes # (A) 1.1 k/uL (0-1.0); Monocytes % (A) 7 %; Neutrophils # (A) 14.3 k/uL (1.3-7.7); Neutrophils % (A) 86 %; Platelet Count 589 k/uL (150-450); RDW 14.2 % (11.5-15.5); WBC 16.7 k/uL (3.8-10.6)
[2019-10-06 11:35] LABS: African American GFR (CKD) >90 (>60 ml/min/1.73 sqM); Anion Gap 6 mmol/L; Blood Urea Nitrogen 24 mg/dL (9-20); Calcium 9.3 mg/dL (8.4-10.2); Carbon Dioxide 34 mmol/L (22-30); Chloride 95 mmol/L (98-107); Glucose 119 mg/dL (74-99); Non-African American GFR(CKD) 89 (>60 ml/min/1.73 sqM); Potassium 4.2 mmol/L (3.5-5.1); Sodium 135 mmol/L (137-145)
[2019-10-06] MEDS: METOPROLOL TARTRATE 25 MG TAB PO SCH ×2 (11:42→22:10)
--- NOTE | 2019-10-06 11:42 | P.CNOR ---
History of Present Illness - [facility] Consult date: 10/06/19 Consult reason: joint pain History of present illness: Patient is a 84-year-old male who presented to [facility] with complaints of fatigue and generalized pain in multiple areas. Patient has had 3 hospital visits in the last 3 months. He has had an extensive cardiac workup which was noted to reveal no severe coronary artery disease. He has a history of COPD along with rheumatoid arthritis. His prior visits he's been evaluated by both cardiology and pulmonology. When evaluated today at bedside, patient describes an event happened back in early June, he was getting in his hot tub when he was trying to lift the cover, he did lose his balance and was able to lower himself to the ground slowly. At that time he did notice severe pain in the left shoulder. He was never evaluated at that time with x-rays. He states for the next 2-3 months he was not very active. At this time on evaluation, he notes no severe shoulder pain. X-rays that were done in the emergency room on this most recent visit did reveal a previous left distal clavicle fracture along with compression fractures in volving T6, L1 and L4. Size the hot tub incident in early June, he cannot remember any significant traumatic events. He denies any previous surgery involving his spine or left upper extremity. He describes the pain being more located in the substernal region and it will migrate laterally and posteriorly. He notices the pain arises when he is doing more physical activity then when sitting still. He denies any paresthesias of the upper or lower extremities. He denies any pain involving the low back, bilateral hips, knees, feet and ankle. Review of Systems Constitutional: Reports as per HPI Past Medical History Past Medical History: Eye Disorder, GI Bleed, Hypertension, Rheumatoid Arthritis (RA) Additional Past Medical History / Comment(s): Lower GI bleed/diverticular disease with severe anemia/surgery, bilateral macular degeneration with some vision loss, pt denies hyperlipidemia. History of Any Multi-Drug Resistant Organisms: None Reported Past Surgical History: Bowel Resection, Tonsillectomy Additional Past Surgical History / Comment(s): Laparotomy/low anterior resection/splenectomy 2ndary to severe bleeding, colonoscopy Past Anesthesia/Blood Transfusion Reactions: No Reported Reaction Additional Past Anesthesia/Blood Transfusion Reaction / Comm: Pt has received blood in past without reaction. Past Psychological History: No Psychological Hx Reported Additional Psychological History / Comment(s): Pt resides alone. He no longer drives, his daughter takes him to appts. Smoking Status: Former smoker Past Alcohol Use History: None Reported Additional Past Alcohol Use History / Comment(s): Pt started smoking in 1949 and quit in 2003. Past Drug Use History: None Reported - Past Family History Father Additional Family Medical History / Comment(s): Father drank heavily. He was healthy and lived into his 80s. Mother Family Medical History: No Reported History Medications and Allergies Home Medications Medication Instructions Recorded Confirmed Type Losartan-Hctz 50-12.5 mg [Hyzaar 1 tab PO DAILY 07/24/19 10/06/19 History 50-12.5] Vit C/E/Zn/Coppr/Lutein/Zeaxan 1 cap PO BID 07/24/19 10/06/19 History [Preservision Areds 2 Softgel] Albuterol Inhaler [Ventolin Hfa 1 puff INHALATION RT-QID #1 puff 07/27/19 10/06/19 Rx Inhaler] Aspirin 81 mg PO DAILY chew 07/27/19 10/06/19 Rx Acetaminophen [Tylenol Extra 500 mg PO Q8H PRN 10/01/19 10/06/19 History Strength] Fluticasone Nasal [place] [Flonase 1 spray EA NOSTRIL BID PRN 10/01/19 10/06/19 History Nasal [place]] Budesonide-Formot 160-4.5 Mcg 2 puff INHALATION RT-BID 30 Days 10/02/19 10/06/19 Rx [Symbicort 160-4.5 Mcg Inhaler] #1 puff Isosorbide Mononitrate ER [Imdur] 30 mg PO DAILY 30 Days #30 10/02/19 10/06/19 Rx tab.er.24h Metoprolol Tartrate [Lopressor] 25 mg PO BID 30 Days #60 tab 10/02/19 10/06/19 Rx Nitroglycerin Sl Tabs [Nitrostat] 0.4 mg SUBLINGUAL Q5M PRN #28 tab 10/02/19 10/06/19 Rx Allergies Allergy/AdvReac Type Severity Reaction Status Date / Time No Known Allergies Allergy Verified 10/06/19 09:20 Physical Examination General orthopedic exam: Evaluation of bilateral shoulders, there is no obvious open lesions or sores present, there is no significant areas of ecchymosis or soft tissue swelling. He's nontender with palpation throughout the clavicle on the left and right side. Range of motion of the bilateral shoulders demonstrates elevation and abduction well passed 100 with no pain. There is no significant strength deficits appreciated bilaterally. Sensory exam to light touch throughout the bilateral upper extremities intact, radial pulse bilaterally is 2+. There is no lesions, ecchymosis, areas of swelling of the cervical, thoracic or lumbar spine. Palpation throughout the spinous processes demonstrates no obvious step off, there is no tenderness with palpation of the spinous processes or paravertebral muscles. Patient is able to sit up on his own, he is able to flex at the hips with no discomfort. Patient was noted to be sitting with his legs crossed and knees bent with no significant discomfort. Logroll maneuver the bilateral lower extremities reproduces no groin pain, he is able to straight leg raise bilaterally. There is no tenderness with palpation surrounding the knee, foot or ankle bilaterally. Plantar flexion, dorsiflexion, EHL, FHL bilaterally intact. Dorsalis pedis pulses are 2+ bilaterally. His sensory exam to light touch throughout the bilateral lower extremities is intact. Results - Labs Labs: Abnormal Lab Results - Last 24 Hours (Table) 10/05/19 10/05/19 10/05/19 Range/Units 19:44 20:00 20:00 WBC 14.6 H (3.8-10.6) k/uL RBC 3.74 L (4.30-5.90) m/uL Hgb 11.2 L (13.0-17.5) gm/dL Hct 34.6 L (39.0-53.0) % Plt Count 461 H (150-450) k/uL Neutrophils # (Manual) 12.26 H (1.3-7.7) k/uL Monocytes # (Manual) 1.17 H (0-1.0) k/uL D-Dimer (<0.60) mg/L FEU Sodium 132 L (137-145) mmol/L Chloride 96 L (98-107) mmol/L BUN 25 H (9-20) mg/dL Creatinine 0.64 L (0.66-1.25) mg/dL Glucose 131 H (74-99) mg/dL Total Protein 6.2 L (6.3-8.2) g/dL Albumin 3.2 L (3.5-5.0) g/dL Ur Leukocyte Esterase Small H (Negative) Urine Bacteria Rare H (None) /hpf Urine Mucus Rare H (None) /hpf 10/05/19 Range/Units 21:53 WBC (3.8-10.6) k/uL RBC (4.30-5.90) m/uL Hgb (13.0-17.5) gm/dL Hct (39.0-53.0) % Plt Count (150-450) k/uL Neutrophils # (Manual) (1.3-7.7) k/uL Monocytes # (Manual) (0-1.0) k/uL D-Dimer 1.58 H (<0.60) mg/L FEU Sodium (137-145) mmol/L Chloride (98-107) mmol/L BUN (9-20) mg/dL Creatinine (0.66-1.25) mg/dL Glucose (74-99) mg/dL Total Protein (6.3-8.2) g/dL Albumin (3.5-5.0) g/dL Ur Leukocyte Esterase (Negative) Urine Bacteria (None) /hpf Urine Mucus (None) /hpf H & H 10/05/19 Range/Units 20:00 Hgb 11.2 L (13.0-17.5) gm/dL Hct 34.6 L (39.0-53.0) % Result Diagrams: 10/06/19 08:16 10/06/19 08:16 - Diagnostic results Shoulder x-ray: report reviewed, image reviewed Lumbar AP/lateral x-ray: report reviewed, image reviewed Assessment and Plan Assessment: Bilateral shoulder osteoarthritis Distal third left clavicle fracture, nonacute Compression fractures, T6, L1 and L4, nonacute Generalized pain Multiple medical comorbidities Plan: Multiple x-rays were reviewed, this including his left shoulder along with the thoracic and lumbar spine. Reports to demonstrate evidence of compression fra ctures involving T6, L1 and L4. Shoulder x-rays did demonstrate the distal left clavicular fracture. I believe most of these fractures are old, left clavicle fracture demonstrates signs of healing at this time. His exam also demonstrates the same. I also believe the compression fractures are older, his exam reveals no acute pathology. I was able to discuss the case, including with physical exam findings and imaging studies might attending Dr. Guajardo. There is no orthopedic surgical intervention recommended at this time. Considering a prescription for a TLSO brace at this time, patient is asymptomatic with regards to the lumbar and thoracic spine at this time. With regards to the clavicle fracture, he may continue activities as tolerated with the left upper extremity. With regards to the generalized pain, I believe there is something more systemically causing this, his labs continue do show a significantly elevated white blood cell count and platelet count. Other medical specialty recommendations We'll be available for any further questions regarding this patient.
[2019-10-06] MEDS ORDERED: VANCOMYCIN IV PER PHARMACY 1 EACH MISC MISCELLANE PRN (14:44)
[2019-10-06] MEDS: methylPREDNISolone SOD SUCCI 40 MG/ML 1 ML VIAL IV SCH ×2 (15:03→15:04)
[2019-10-06] MEDS ORDERED: VANCOMYCIN 1,500 MG in SODIUM CHLORIDE 0.9% 250 ML IVPB ONE (15:15)
[2019-10-06] MEDS: HEPARIN SODIUM,PORCINE 5,000 UNIT/ML 1 ML VIAL SQ SCH (15:32)
[2019-10-06] MEDS: ACETAMINOPHEN TAB 325 MG TAB PO PRN (15:42)
[2019-10-06] MEDS: SYMBICORT 160-4.5 MCG INHALER INHALATION SCH (20:15)
--- NOTE | 2019-10-06 23:24 | P.HPIM ---
History of Present Illness H&P Date: 10/06/19 Chief Complaint: generalized pain Patient is a 84-year-old male with a known history of hypertension, RA, history of lower GI bleed/diverticular disease bilateral macular degeneration, status post splenectomy presents to ER with complaints of generalized pain. Patient states that he has been having pain in his thoracic and lumbar spine. Patient also complaining of right rib cage pain shoulder pain and left shoulder pain. Patient is also having shortness of breath and wheezing at rest but denied any complaints of difficulty in breathing. Denied any recent fall or trauma. No complaints of fever or chills. Patient does have cough with deep breathing and no sputum production. Denied any nausea vomiting or diarrhea. Denied any abdominal pain. Patient does have previous history of smoking. X-ray of the ribs showed no active cardiopulmonary disease. No acute bony abnormality. Old left clavicle fracture. X-ray of the lumbar spine showed compression fractures. There is appearance of osteoporosis and osteomalacia. X-ray of the thoracic spine showed compression fractures of T6 has progressed compared to previous chest CT. Shoulder x-ray showed mild osteoarthritis. There is healing fracture lateral and left clavicle without change in position c ompared to chest x-ray on 07/24/2019 CT angiogram of the chest showed no evidence of pulmonary embolism. Basilar pulmonary scarring and atelectasis increased slightly compared to old exam. Mild multiple compression fractures have progressive compared to old exam. Pulmonary emphysema. EKG showed sinus tachycardia Laboratory data reviewed which showed WBC 14.6, hemoglobin 11.2 and platelets 461 Sodium 132 potassium 3.8, chloride 96 and BUN 25 and creatinine 0.64 Lactic acid 1.3 Lipase level 56 Liver enzymes are not elevated Troponin x3- Coronavirus PCR not detected Patient is a poor historian otherwise. Review of Systems Constitutional: Patient denies any fever or chills . generalized weakness and pain, no weight loss. Abdomen: Patient denied nausea vomiting and diarrhea and abdominal pain. Cardiovascular: Patient denies any chest pain or short of breath no palpitations. Respiratory: patient denied any cough is from production. No shortness of breath Neurologic: Patient denied any numbness or tingling headache. Musculoskeletal: Patient denies any complaints of joint swelling or deformity. back pain and left shoulder pain. Skin: Negative Psychiatric: Negative Endocrine: No heat or cold intolerance. No recent weight gain. Genitourinary: No dysuria or hematuria. All other 14 point ROS negative except the above Past Medical History Past Medical History: Eye Disorder, GI Bleed, Hypertension, Rheumatoid Arthritis (RA) Additional Past Medical History / Comment(s): Lower GI bleed/diverticular disease with severe anemia/surgery, bilateral macular degeneration with some vision loss, pt denies hyperlipidemia. History of Any Multi-Drug Resistant Organisms: None Reported Past Surgical History: Bowel Resection, Tonsillectomy Additional Past Surgical History / Comment(s): Laparotomy/low anterior resection/splenectomy 2ndary to severe bleeding, colonoscopy Past Anesthesia/Blood Transfusion Reactions: No Reported Reaction Additional Past Anesthesia/Blood Transfusion Reaction / Comment(s): Pt has received blood in past without reaction. Past Psychological History: No Psychological Hx Reported Additional Psychological History / Comment(s): Pt resides alone. He no longer drives, his daughter takes him to [employer]. Smoking Status: Former smoker Past Alcohol Use History: None Reported Additional Past Alcohol Use History / Comment(s): Pt started smoking in 1949 and quit in 2003. Past Drug Use History: None Reported - Past Family History Father Additional Family Medical History / Comment(s): Father drank heavily. He was healthy and lived into his 80s. Mother Family Medical History: No Reported History Medications and Allergies Home Medications Medication Instructions Recorded Confirmed Type Losartan-Hctz 50-12.5 mg [Hyzaar 1 tab PO DAILY 07/24/19 10/06/19 History 50-12.5] Vit C/E/Zn/Coppr/Lutein/Zeaxan 1 cap PO BID 07/24/19 10/06/19 History [Preservision Areds 2 Softgel] Albuterol Inhaler [Ventolin Hfa 1 puff INHALATION RT-QID #1 puff 07/27/19 10/06/19 Rx Inhaler] Aspirin 81 mg PO DAILY chew 07/27/19 10/06/19 Rx Acetaminophen [Tylenol Extra 500 mg PO Q8H PRN 10/01/19 10/06/19 History Strength] Fluticasone Nasal [place] [Flonase 1 spray EA NOSTRIL BID PRN 10/01/19 10/06/19 History Nasal [place]] Budesonide-Formot 160-4.5 Mcg 2 puff INHALATION RT-BID 30 Days 10/02/19 10/06/19 Rx [Symbicort 160-4.5 Mcg Inhaler] #1 puff Isosorbide Mononitrate ER [Imdur] 30 mg PO DAILY 30 Days #30 10/02/19 10/06/19 Rx tab.er.24h Metoprolol Tartrate [Lopressor] 25 mg PO BID 30 Days #60 tab 10/02/19 10/06/19 Rx Nitroglycerin Sl Tabs [Nitrostat] 0.4 mg SUBLINGUAL Q5M PRN #28 tab 10/02/19 10/06/19 Rx Allergies Allergy/AdvReac Type Severity Reaction Status Date / Time No Known Allergies Allergy Verified 10/06/19 09:20 Physical Exam Vitals: Vital Signs Temp Pulse Pulse Resp BP BP Pulse Ox 10/06/19 09:17 115 H 36 H 118/67 96 10/06/19 08:00 115 H 10/06/19 07:00 97.9 F 108 H 16 134/77 10/06/19 01:00 98.4 F 110 H 18 157/79 92 L 10/06/19 00:00 98.2 F 110 H 18 152/97 97 10/05/19 23:00 112 H 20 139/73 98 10/05/19 22:00 114 H 20 125/73 97 10/05/19 21:55 114 H 20 135/70 97 10/05/19 21:30 110 H 20 128/68 97 10/05/19 21:00 116 H 20 122/69 97 10/05/19 20:00 113 H 20 123/65 100 10/05/19 19:38 118 H 20 120/72 100 10/05/19 17:54 98 F 103 H 20 126/65 91 L Intake and Output 10/05/19 10/06/19 10/06/19 22:59 06:59 14:59 Intake Total 150 Output Total 400 Balance -400 150 Intake: Oral 150 Output: Urine 400 Other: Voiding Method Toilet Toilet Urinal Urinal # Voids 1 Weight 72.575 kg 72.575 kg PHYSICAL EXAMINATION: Patient is lying in the bed comfortably, mild distress, awake alert and oriented.. HEENT: Normocephalic. Neck is supple. Pupils reactive. Nostrils clear. Oral cavity is moist. Ears reveal no drainage. Neck reveals no JVD, carotid bruits, or thyromegaly. CHEST EXAMINATION: Trachea is central. Symmetrical expansion. b/l wheezing in th e upper lungs. no crackles. basilar diminishes sounds. no labored, . CARDIAC: Normal S1, S2 with no gallops. No murmurs ABDOMEN: Soft. ventral hernia, Bowel sounds normal. No organomegaly. No abdomi nal bruits. Extremities: reveal no edema. No clubbing or cyanosis Neurologically awake, alert, oriented x3 with well-coordinated movements. No focal deficits noted Skin: No rash or skin lesions. Psychiatric: Coperative. Nonsuicidal Musculoskeletal: No joint swelling or deformity. decreased range of motion. tenderness all over spine and ribs. Results CBC & Chem 7: 10/06/19 08:16 10/06/19 08:16 Labs: Abnormal Lab Results - Last 24 Hours (Table) 10/05/19 10/05/19 10/05/19 Range/Units 19:44 20:00 20:00 WBC 14.6 H (3.8-10.6) k/uL RBC 3.74 L (4.30-5.90) m/uL Hgb 11.2 L (13.0-17.5) gm/dL Hct 34.6 L (39.0-53.0) % Plt Count 461 H (150-450) k/uL Neutrophils # (Manual) 12.26 H (1.3-7.7) k/uL Monocytes # (Manual) 1.17 H (0-1.0) k/uL D-Dimer (<0.60) mg/L FEU Sodium 132 L (137-145) mmol/L Chloride 96 L (98-107) mmol/L BUN 25 H (9-20) mg/dL Creatinine 0.64 L (0.66-1.25) mg/dL Glucose 131 H (74-99) mg/dL Total Protein 6.2 L (6.3-8.2) g/dL Albumin 3.2 L (3.5-5.0) g/dL Ur Leukocyte Esterase Small H (Negative) Urine Bacteria Rare H (None) /hpf Urine Mucus Rare H (None) /hpf 10/05/19 Range/Units 21:53 WBC (3.8-10.6) k/uL RBC (4.30-5.90) m/uL Hgb (13.0-17.5) gm/dL Hct (39.0-53.0) % Plt Count (150-450) k/uL Neutrophils # (Manual) (1.3-7.7) k/uL Monocytes # (Manual) (0-1.0) k/uL D-Dimer 1.58 H (<0.60) mg/L FEU Sodium (137-145) mmol/L Chloride (98-107) mmol/L BUN (9-20) mg/dL Creatinine (0.66-1.25) mg/dL Glucose (74-99) mg/dL Total Protein (6.3-8.2) g/dL Albumin (3.5-5.0) g/dL Ur Leukocyte Esterase (Negative) Urine Bacteria (None) /hpf Urine Mucus (None) /hpf Thrombosis Risk Factor Assmnt - DVT/VTE Prophylaxis DVT/VTE Prophylaxis: Pharmacologic Prophylaxis ordered Assessment and Plan Assessment: Generalized pain and left shoulder pain and back pain. History of left clavicle fracture Multiple compression fractures in the thoracic and lumbar spine progressing compared to prior CT Acute COPD exacerbation Gram-positive cocci bacteremia. 1 out of 2 bottles. Follow-up final blood cultures. Leukocytosis Bibasilar atelectasis Hypovolemic hyponatremia Rheumatoid arthritis History of lower GI bleed/diverticular disease Bilateral macular degeneration History of splenectomy Previous hx of Smoking DVT prophylaxis with heparin subcu Plan: Patient will be continued pain management and orthopedic surgery was consulted. We will continue with breathing treatments and started IV steroids and antibiotics in the home vancomycin and follow-up final blood culture report. Continue with the home medications and further recommendations based on the clinical course. Encourage incentive spirometry. PT/OT . Time with Patient: Greater than 30
[2019-10-07] MEDS: VANCOMYCIN 1,250 MG in SODIUM CHLORIDE 0.9% 250 ML IVPB SCH ×3 (00:03→21:03)
[2019-10-07] MEDS: MORPHINE SULFATE 4 MG/ML SYRINGE IV PRN (00:09)
[2019-10-07] MEDS ORDERED: HALOPERIDOL LACTATE 5 MG/ML 1 ML VIAL IM STA (00:10)
[2019-10-07] MEDS: HEPARIN SODIUM,PORCINE 5,000 UNIT/ML 1 ML VIAL SQ SCH ×4 (00:57→23:54)
[2019-10-07] MEDS: ACETAMINOPHEN TAB 325 MG TAB PO PRN ×3 (01:02→18:10)
[2019-10-07 07:16] LABS: Glucose,Whole Blood 128 mg/dL (75-99)
[2019-10-07] MEDS: INSULIN ASPART (NovoLOG) 100 UNIT/ML VIAL SQ SCH ×4 (08:27→21:09)
[2019-10-07] MEDS: ISOSORBIDE MONONITRATE ER 30 MG TAB.ER.24H PO SCH (08:53)
[2019-10-07] MEDS: methylPREDNISolone SOD SUCCI 40 MG/ML 1 ML VIAL IV SCH ×3 (08:53→23:54)
[2019-10-07] MEDS: METOPROLOL TARTRATE 25 MG TAB PO SCH ×2 (08:53→21:10)
[2019-10-07] MEDS: SYMBICORT 160-4.5 MCG INHALER INHALATION SCH ×2 (09:02→21:29)
[2019-10-07 11:52] LABS: Glucose,Whole Blood 139 mg/dL (75-99)
[2019-10-07 12:20] LABS: Basophils % (A) 0 %; Eosinophils % (A) 0 %; HCT 33.6 % (39.0-53.0); HGB 10.4 gm/dL (13.0-17.5); Hypochromasia Moderate; Lymphocytes # (A) 0.7 k/uL (1.0-4.8); Lymphocytes % (A) 4 %; MCH 29.6 pg (25.0-35.0); MCV 95.5 fL (80.0-100.0); Mean Platelet Volume 6.9; Monocytes # (A) 0.6 k/uL (0-1.0); Monocytes % (A) 4 %; Neutrophils % (A) 92 %; Platelet Count 591 k/uL (150-450); RBC 3.51 m/uL (4.30-5.90); RDW 14.2 % (11.5-15.5); WBC 16.3 k/uL (3.8-10.6)
[2019-10-07 12:37] LABS: African American GFR (CKD) >90 (>60 ml/min/1.73 sqM); Anion Gap 6 mmol/L; Blood Urea Nitrogen 28 mg/dL (9-20); Calcium 8.9 mg/dL (8.4-10.2); Carbon Dioxide 30 mmol/L (22-30); Chloride 98 mmol/L (98-107); Glucose 129 mg/dL (74-99); Non-African American GFR(CKD) >90 (>60 ml/min/1.73 sqM); Potassium 4.2 mmol/L (3.5-5.1); Sodium 134 mmol/L (137-145)
[2019-10-07 17:02] LABS: Glucose,Whole Blood 151 mg/dL (75-99)
[2019-10-07 21:03] LABS: Glucose,Whole Blood 164 mg/dL (75-99)
--- NOTE | 2019-10-08 00:30 | P.PN ---
Subjective Progress Note Date: 10/07/19 Principal diagnosis: Chronic left shoulder pain and back pain. Group D enterococcus bacteremia Acute COPD exacerbation Patient is a 84-year-old male with a known history of hypertension, RA, history of lower GI bleed/diverticular disease bilateral macular degeneration, status post splenectomy presents to ER with complaints of generalized pain. Patient states that he has been having pain in his thoracic and lumbar spine. Patient also complaining of right rib cage pain shoulder pain and left shoulder pain. Patient is also having shortness of breath and wheezing at rest but denied any complaints of difficulty in breathing. Denied any recent fall or trauma. No complaints of fever or chills. Patient does have cough with deep breathing and no sputum production. Denied any nausea vomiting or diarrhea. Denied any abdominal pain. Patient does have previous history of smoking. X-ray of the ribs showed no active cardiopulmonary disease. No acute bony abnormality. Old left clavicle fracture. X-ray of the lumbar spine showed compression fractures. There is appearance of osteoporosis and osteomalacia. X-ray of the thoracic spine showed compression fractures of T6 has progressed compared to previous chest CT. Shoulder x-ray showed mild osteoarthritis. There is healing fracture lateral and left clavicle without change in position compared to chest x-ray on 07/24/2019 CT angiogram of the chest showed no evidence of pulmonary embolism. Basilar pulmonary scarring and atelectasis increased slightly compared to old exam. Mild multiple compression fractures have progressive compared to old exam. Pulmonary emphysema. EKG showed sinus tachycardia Laboratory data reviewed which showed WBC 14.6, hemoglobin 11.2 and platelets 46 1 Sodium 132 potassium 3.8, chloride 96 and BUN 25 and creatinine 0.64 Lactic acid 1.3 Lipase level 56 Liver enzymes are not elevated Troponin x3- Coronavirus PCR not detected Patient is a poor historian otherwise. 10/07/2019 Patient is currently lying in the bed comfortably. Back pain and shoulder pain is better. Breathing status is better as well. Minimal expiratory wheezing was noted otherwise air entry is much improved. Patient will be started on PT OT. Blood cultures grew group D enterococcus. Patient is currently on vancomycin. Repeat cultures were ordered. ID will be consulted. Patient has been afebrile. Still having leukocytosis at 16.2. Patient is also on steroids as well. Patient is afebrile. No nausea vomiting or abdominal pain or diarrhea. Current medications reviewed. Objective - Vital Signs Vital signs: Vital Signs Temp 97.8 F 10/07/19 19:42 Pulse 90 10/07/19 19:42 Resp 18 10/07/19 19:42 BP 144/80 10/07/19 19:42 Pulse Ox 94 L 10/07/19 19:42 Intake & Output 10/07/19 10/07/19 10/08/19 06:59 18:59 06:59 Intake Total 250 Output Total 100 650 Balance -100 -400 Intake: Intake, IV Titration 250 Amount Vancomycin 1,250 mg In 250 Sodium Chloride 0.9% 250 ml @ 125 mls/hr IVPB BID [facility] Rx#:[id number] Output: Urine 100 650 Other: Voiding Method Indwelling Catheter Indwelling Catheter # Voids 400 - Exam PHYSICAL EXAMINATION: Patient is lying in the bed comfortably, no distress, awake alert and oriented.. HEENT: Normocephalic. Neck is supple. Pupils reactive. Nostrils clear. Oral cavity is moist. Ears reveal no drainage. Neck reveals no JVD, carotid bruits, or thyromegaly. CHEST EXAMINATION: Trachea is central. Symmetrical expansion. b/l exp wheezing in the upper lungs. no crackles. basilar diminishes sounds. no labored, . CARDIAC: Normal S1, S2 with no gallops. No murmurs ABDOMEN: Soft. ventral hernia, Bowel sounds normal. No organomegaly. No abdominal bruits. Extremities: reveal no edema. No clubbing or cyanosis Neurologically awake, alert, oriented x3 with well-coordinated movements. No focal deficits noted Skin: No rash or skin lesions. Psychiatric: Coperative. Nonsuicidal Musculoskeletal: No joint swelling or deformity. decreased range of motion. tenderness all over spine and ribs. - Labs CBC & Chem 7: 10/07/19 12:02 10/07/19 12:02 Labs: Abnormal Lab Results - Last 24 Hours (Table) 10/07/19 10/07/19 10/07/19 Range/Units 07:14 11:50 12:02 WBC 16.3 H (3.8-10.6) k/uL RBC 3.51 L (4.30-5.90) m/uL Hgb 10.4 L (13.0-17.5) gm/dL Hct 33.6 L (39.0-53.0) % Plt Count 591 H (150-450) k/uL Neutrophils # 15.0 H (1.3-7.7) k/uL Lymphocytes # 0.7 L (1.0-4.8) k/uL Sodium (137-145) mmol/L BUN (9-20) mg/dL Creatinine (0.66-1.25) mg/dL Glucose (74-99) mg/dL POC Glucose (mg/dL) 128 H 139 H (75-99) mg/dL 10/07/19 10/07/19 Range/Units 12:02 17:00 WBC (3.8-10.6) k/uL RBC (4.30-5.90) m/uL Hgb (13.0-17.5) gm/dL Hct (39.0-53.0) % Plt Count (150-450) k/uL Neutrophils # (1.3-7.7) k/uL Lymphocytes # (1.0-4.8) k/uL Sodium 134 L (137-145) mmol/L BUN 28 H (9-20) mg/dL Creatinine 0.64 L (0.66-1.25) mg/dL Glucose 129 H (74-99) mg/dL POC Glucose (mg/dL) 151 H (75-99) mg/dL Microbiology - Last 24 Hours (Table) 10/06/19 00:59 Blood Culture Gram Stain - Preliminary Blood Blood Culture - Preliminary Group D Enterococcus Assessment and Plan Assessment: Generalized pain and left shoulder pain and back pain. improving, History of left clavicle fracture Multiple compression fractures in the thoracic and lumbar spine progressing compared to prior CT Acute COPD exacerbation Group D enterococcus bacteremia. 1 out of 2 bottles. Follow-up repeatblood cultures. Leukocytosis Bibasilar atelectasis Hypovolemic hyponatremia Rheumatoid arthritis History of lower GI bleed/diverticular disease Bilateral macular degeneration History of splenectomy Previous hx of Smoking DVT prophylaxis with heparin subcu Plan: Patient will be continued pain management and orthopedic surgery was consulted. We will continue with breathing treatments and started IV steroids and antibiotics in the home vancomycin and follow-up final blood culture report. Continue with the home medications and further recommendations based on the clinical course. Encourage incentive spirometry. PT/OT . Time with Patient: Greater than 30
[2019-10-08 07:02] LABS: Glucose,Whole Blood 164 mg/dL (75-99)
[2019-10-08] MEDS ORDERED: VANCOMYCIN TROUGH DUE 1 EACH MISC MISCELLANE ONE (08:00)
[2019-10-08] MEDS: SYMBICORT 160-4.5 MCG INHALER INHALATION SCH ×2 (08:27→18:32)
[2019-10-08] MEDS: methylPREDNISolone SOD SUCCI 40 MG/ML 1 ML VIAL IV SCH (08:30)
[2019-10-08] MEDS: METOPROLOL TARTRATE 25 MG TAB PO SCH (08:31)
[2019-10-08] MEDS: ISOSORBIDE MONONITRATE ER 30 MG TAB.ER.24H PO SCH (08:31)
[2019-10-08] MEDS: HEPARIN SODIUM,PORCINE 5,000 UNIT/ML 1 ML VIAL SQ SCH ×2 (08:31→15:32)
[2019-10-08] MEDS: INSULIN ASPART (NovoLOG) 100 UNIT/ML VIAL SQ SCH ×3 (08:44→17:44)
[2019-10-08 09:01] LABS: Basophils % (A) 0 %; Eosinophils % (A) 0 %; HCT 37.3 % (39.0-53.0); HGB 11.3 gm/dL (13.0-17.5); Hypochromasia Slight; Lymphocytes # (A) 0.6 k/uL (1.0-4.8); Lymphocytes % (A) 3 %; MCH 28.4 pg (25.0-35.0); MCHC 30.3 g/dL (31.0-37.0); MCV 93.9 fL (80.0-100.0); Mean Platelet Volume 7.4; Monocytes # (A) 0.5 k/uL (0-1.0); Monocytes % (A) 3 %; Neutrophils % (A) 95 %; Platelet Count 649 k/uL (150-450); RBC 3.97 m/uL (4.30-5.90); RDW 14.1 % (11.5-15.5); WBC 21.1 k/uL (3.8-10.6)
[2019-10-08 09:12] LABS: African American GFR (CKD) >90 (>60 ml/min/1.73 sqM); Anion Gap 6 mmol/L; Blood Urea Nitrogen 29 mg/dL (9-20); Carbon Dioxide 29 mmol/L (22-30); Chloride 100 mmol/L (98-107); Glucose 128 mg/dL (74-99); Non-African American GFR(CKD) >90 (>60 ml/min/1.73 sqM); Potassium 4.3 mmol/L (3.5-5.1); Sodium 135 mmol/L (137-145)
[2019-10-08] MEDS: VANCOMYCIN 1,250 MG in SODIUM CHLORIDE 0.9% 250 ML IVPB SCH (09:28)
[2019-10-08 11:28] LABS: Glucose,Whole Blood 125 mg/dL (75-99)
[2019-10-08] MEDS: ACETAMINOPHEN TAB 325 MG TAB PO PRN (13:09)
[2019-10-08] MEDS: IPRATROPIUM-ALBUTEROL 3 ML NEB INHALATION PRN ×2 (15:32→18:32)
[2019-10-08 16:24] LABS: Glucose,Whole Blood 173 mg/dL (75-99)
[2019-10-08] MEDS ORDERED: Magnesium Replacement Protocol 1 EACH MISC MISCELLANE PRN (18:22)
[2019-10-08] MEDS ORDERED: LORazepam 2 MG/ML INJ IV PRN ×3 (20:27→23:10)
[2019-10-08] MEDS ORDERED: HALOPERIDOL LACTATE 5 MG/ML 1 ML VIAL IM STA (21:29)
[2019-10-08] MEDS: HALOPERIDOL LACTATE 5 MG/ML 1 ML VIAL IM PRN (21:40)
[2019-10-08] MEDS ORDERED: IOPAMIDOL CONTRAST (ORAL USE) VIAL PO PRN (23:07)
--- NOTE | 2019-10-08 23:12 | P.CONS ---
History of Present Illness - Reason for Consult Consult date: 10/08/19 bacteremia Requesting physician: Dina Persaud - Chief Complaint hurting all over x few days - History of Present Illness Patient is 84-year-old male with a past medical history for liver hypertension with arthritis status post splenectomy patient was in hospital with generalized pain all over the symptom that has been going on for the last few days before presented to the hospital potassium history of any trauma will be complaining of pain mostly in the left lower chest area especially with deep breathing and coughing patient denies having any significant sputum production no nausea no vomiting no abdominal pain and no diarrhea overall not a good hist orian the with the symptom the patient was evaluated by the ER physician on arrival to the ER the patient did have multiple work-up including a CT angiogram that was negative for PE diffuse and basal pulmonary scarring atelectasis with multiple compression fracture and progress from the old exam patient on presentation to the hospital has been afebrile patient had did have a white count of 14.6 on admission about 4 days ago is up to 21.1 today kidney function has been normal urine was not significantly positive the patient had blood culture drawn which came back positive Enterococcus faecalis patient has been treated with Solu-Medrol and vancomycin, infectious disease was consulted today for further management of antibiotic therapy. Review of Systems Positive point has been mentioned in HPI rest of the systems are negative Past Medical History Past Medical History: Eye Disorder, GI Bleed, Hypertension, Rheumatoid Arthritis (RA) Additional Past Medical History / Comment(s): Lower GI bleed/diverticular disease with severe anemia/surgery, bilateral macular degeneration with some vision loss, pt denies hyperlipidemia. History of Any Multi-Drug Resistant Organisms: None Reported Past Surgical History: Bowel Resection, Tonsillectomy Additional Past Surgical History / Comment(s): Laparotomy/low anterior resection/splenectomy 2ndary to severe bleeding, colonoscopy Past Anesthesia/Blood Transfusion Reactions: No Reported Reaction Additional Past Anesthesia/Blood Transfusion Reaction / Comm: Pt has received blood in past without reaction. Past Psychological History: No Psychological Hx Reported Additional Psychological History / Comment(s): Pt resides alone. He no longer drives, his daughter takes him to appts. Smoking Status: Former smoker Past Alcohol Use History: None Reported Additional Past Alcohol Use History / Comment(s): Pt started smoking in 1950 and quit in 2003. Past Drug Use History: None Reported - Past Family History Father Additional Family Medical History / Comment(s): Father drank heavily. He was healthy and lived into his 80s. Mother Family Medical History: No Reported History Medications and Allergies Home Medications Medication Instructions Recorded Confirmed Type Losartan-Hctz 50-12.5 mg [Hyzaar 1 tab PO DAILY 07/24/19 10/06/19 History 50-12.5] Vit C/E/Zn/Coppr/Lutein/Zeaxan 1 cap PO BID 07/24/19 10/06/19 History [Preservision Areds 2 Softgel] Albuterol Inhaler [Ventolin Hfa 1 puff INHALATION RT-QID #1 puff 07/27/1910/05 Rx Inhaler] Aspirin 81 mg PO DAILY chew 07/27/19 10/06/19 Rx Acetaminophen [Tylenol Extra 500 mg PO Q8H PRN 10/01/19 10/06/19 History Strength] Fluticasone Nasal [place] [Flonase 1 spray EA NOSTRIL BID PRN 10/01/19 10/06/19 History Nasal [place]] Budesonide-Formot 160-4.5 Mcg 2 puff INHALATION RT-BID 30 Days 10/02/19 10/06/19 Rx [Symbicort 160-4.5 Mcg Inhaler] #1 puff Isosorbide Mononitrate ER [Imdur] 30 mg PO DAILY 30 Days #30 10/02/19 10/06/19 Rx tab.er.24h Metoprolol Tartrate [Lopressor] 25 mg PO BID 30 Days #60 tab 10/02/19 10/06/19 Rx Nitroglycerin Sl Tabs [Nitrostat] 0.4 mg SUBLINGUAL Q5M PRN #28 tab 10/02/19 10/06/19 Rx Allergies Allergy/AdvReac Type Severity Reaction Status Date / Time No Known Allergies Allergy Verified 10/06/19 09:20 Physical Exam Vitals: Vital Signs Temp Pulse Resp BP Pulse Ox 10/08/19 07:00 97.8 F 85 17 162/80 95 10/08/19 03:25 18 10/08/19 01:22 97.8 F 83 16 155/76 94 L 10/07/19 21:02 81 159/74 10/07/19 19:42 97.8 F 90 18 144/80 94 L 10/07/19 14:29 97.9 F 74 20 115/61 92 L Intake and Output 10/07/19 10/08/19 10/08/19 22:59 06:59 14:59 Intake Total 800 400 Output Total 1050 400 Balance 800 -650 -400 Intake: IV 800 400 Normal Saline 800 400 Output: Urine 1050 400 Straight 400 Other: Voiding Method Indwelling Catheter Indwelling Catheter GENERAL DESCRIPTION: Elderly male up in a chair, no distress. No tachypnea or accessory muscle of respiration use. HEENT: Shows Pallor , no scleral icterus. Oral mucous membrane is dry. NECK: Trachea central, no thyromegaly. LUNGS: Unlabored breathing. Decreased breath sound at base. No wheeze or crackle. HEART: S1, S2, regular rate and rhythm. ABDOMEN: Soft, no tenderness , guarding or rigidity EXTREMITIES: No edema of feet. SKIN: No rash, no masses palpable. NEUROLOGICAL: The patient is awake, alert, oriented x2, mood and affect normal. Results CBC & Chem 7: 10/08/19 08:18 10/08/19 08:18 Labs: Abnormal Lab Results - Last 24 Hours (Table) 10/07/19 10/07/19 10/07/19 Range/Units 11:50 12:02 12:02 WBC 16.3 H (3.8-10.6) k/uL RBC 3.51 L (4.30-5.90) m/uL Hgb 10.4 L (13.0-17.5) gm/dL Hct 33.6 L (39.0-53.0) % MCHC (31.0-37.0) g/dL Plt Count 591 H (150-450) k/uL Neutrophils # 15.0 H (1.3-7.7) k/uL Lymphocytes # 0.7 L (1.0-4.8) k/uL Sodium 134 L (137-145) mmol/L BUN 28 H (9-20) mg/dL Creatinine 0.64 L (0.66-1.25) mg/dL Glucose 129 H (74-99) mg/dL POC Glucose (mg/dL) 139 H (75-99) mg/dL 10/07/19 10/07/19 10/08/19 Range/Units 17:00 21:01 06:52 WBC (3.8-10.6) k/uL RBC (4.30-5.90) m/uL Hgb (13.0-17.5) gm/dL Hct (39.0-53.0) % MCHC (31.0-37.0) g/dL Plt Count (150-450) k/uL Neutrophils # (1.3-7.7) k/uL Lymphocytes # (1.0-4.8) k/uL Sodium (137-145) mmol/L BUN (9-20) mg/dL Creatinine (0.66-1.25) mg/dL Glucose (74-99) mg/dL POC Glucose (mg/dL) 151 H 164 H 164 H (75-99) mg/dL 10/08/19 10/08/19 10/08/19 Range/Units 08:18 08:18 11:25 WBC 21.1 H (3.8-10.6) k/uL RBC 3.97 L (4.30-5.90) m/uL Hgb 11.3 L (13.0-17.5) gm/dL Hct 37.3 L (39.0-53.0) % MCHC 30.3 L (31.0-37.0) g/dL Plt Count 649 H (150-450) k/uL Neutrophils # 20.0 H (1.3-7.7) k/uL Lymphocytes # 0.6 L (1.0-4.8) k/uL Sodium 135 L (137-145) mmol/L BUN 29 H (9-20) mg/dL Creatinine 0.65 L (0.66-1.25) mg/dL Glucose 128 H (74-99) mg/dL POC Glucose (mg/dL) 125 H (75-99) mg/dL Microbiology - Last 24 Hours (Table) 10/06/19 00:59 Blood Culture Gram Stain - Final Blood Blood Culture - Final Enterococcus faecalis Assessment and Plan Assessment: patient with Enterococcus faecalis bacteremia which is usually of recurrent or urinary origin in this patient presented to hospital with generalized weakness and had left lower chest pain however the pain did have a CT angiogram that was negative for PE and the patient UA has been negative with concern for possible abdominal source of this bacteremia organism is penicillin sensitive (1) Bacteremia Current Visit: Yes Status: Acute Code(s): R78.81 - BACTEREMIA SNOMED Code(s): 7533505 Plan: 1-blood cultures will be repeated document clearance of bacteremia 2-discontinue the vancomycin 3-Unasyn 3 g every 6 hours 4-CT abdominal pelvis with oral contrast only We will follow on clinical condition and cultures to further adjust medication if needed Thank you for this consultation we will follow the patient along with you Time with Patient: Greater than 30
[2019-10-08] MEDS: diphenhydrAMINE 50 MG/ML 1 ML VIAL IVP PRN (23:16)
--- NOTE | 2019-10-09 00:01 | P.PN ---
Subjective Progress Note Date: 10/08/19 Principal diagnosis: Chronic left shoulder pain and back pain. Group D enterococcus bacteremia Acute COPD exacerbation Patient is a 84-year-old male with a known history of hypertension, RA, history of lower GI bleed/diverticular disease bilateral macular degeneration, status post splenectomy presents to ER with complaints of generalized pain. Patient states that he has been having pain in his thoracic and lumbar spine. Patient also complaining of right rib cage pain shoulder pain and left shoulder pain. Patient is also having shortness of breath and wheezing at rest but denied any complaints of difficulty in breathing. Denied any recent fall or trauma. No complaints of fever or chills. Patient does have cough with deep breathing and no sputum production. Denied any nausea vomiting or diarrhea. Denied any abdominal pain. Patient does have previous history of smoking. X-ray of the ribs showed no active cardiopulmonary disease. No acute bony abnormality. Old left clavicle fracture. X-ray of the lumbar spine showed compression fractures. There is appearance of osteoporosis and osteomalacia. X-ray of the thoracic spine showed compression fractures of T6 has progressed compared to previous chest CT. Shoulder x-ray showed mild osteoarthritis. There is healing fracture lateral and left clavicle without change in position compared to chest x-ray on 07/24/2019 CT angiogram of the chest showed no evidence of pulmonary embolism. Basilar pulmonary scarring and atelectasis increased slightly compared to old exam. Mild multiple compression fractures have progressive compared to old exam. Pulmonary emphysema. EKG showed sinus tachycardia Laboratory data reviewed which showed WBC 14.6, hemoglobin 11.2 and platelets 46 1 Sodium 132 potassium 3.8, chloride 96 and BUN 25 and creatinine 0.64 Lactic acid 1.3 Lipase level 56 Liver enzymes are not elevated Troponin x3- Coronavirus PCR not detected Patient is a poor historian otherwise. 10/07/2019 Patient is currently lying in the bed comfortably. Back pain and shoulder pain is better. Breathing status is better as well. Minimal expiratory wheezing was noted otherwise air entry is much improved. Patient will be started on PT OT. Blood cultures grew group D enterococcus. Patient is currently on vancomycin. Repeat cultures were ordered. ID will be consulted. Patient has been afebrile. Still having leukocytosis at 16.2. Patient is also on steroids as well. Patient is afebrile. No nausea vomiting or abdominal pain or diarrhea. 10/08/2019 Patient is currently lying in the bed comfortably. Back pain and shoulder pain is improving. Continued on pain management. Otherwise blood cultures grew Enterococcus faecalis. ID will be consulted and repeat blood cultures were ordered. Patient still having leukocytosis with WBC count 21.1. Patient is also on steroids as well. No wheezing noted on examination and I discharge will be changed to prednisone 30 mg daily. Patient has been afebrile. Other laboratory data showed BUN 29 creatinine 0.65 blood sugar is controlled. No complaints of chest pain or shortness of breath. Current medications reviewed. Objective - Vital Signs Vital signs: Vital Signs Temp 98.1 F 10/08/19 18:29 Pulse 106 H 10/08/19 18:41 Resp 24 10/08/19 18:29 BP 130/70 10/08/19 18:29 Pulse Ox 94 L 10/08/19 18:29 Intake & Output 10/08/19 10/08/19 10/09/19 06:59 18:59 06:59 Intake Total 1200 Output Total 1050 400 Balance 150 -400 Intake: IV 1200 Normal Saline 1200 Output: Urine 1050 400 Straight 400 Other: Voiding Method Indwelling Catheter Indwelling Catheter # Bowel Movements 2 - Exam PHYSICAL EXAMINATION: Patient is lying in the bed comfortably, no distress, awake alert and oriented.. HEENT: Normocephalic. Neck is supple. Pupils reactive. Nostrils clear. Oral cavity is moist. Ears reveal no drainage. Neck reveals no JVD, carotid bruits, or thyromegaly. CHEST EXAMINATION: Trachea is central. Symmetrical expansion. b/l exp wheezing in the upper lungs. no crackles. basilar diminishes sounds. no labored, . CARDIAC: Normal S1, S2 with no gallops. No murmurs ABDOMEN: Soft. ventral hernia, Bowel sounds normal. No organomegaly. No abdominal bruits. Extremities: reveal no edema. No clubbing or cyanosis Neurologically awake, alert, oriented x3 with well-coordinated movements. No focal deficits noted Skin: No rash or skin lesions. Psychiatric: Coperative. Nonsuicidal Musculoskeletal: No joint swelling or deformity. decreased range of motion. tenderness all over spine and ribs. - Labs CBC & Chem 7: 10/08/19 08:18 10/08/19 08:18 Labs: Abnormal Lab Results - Last 24 Hours (Table) 10/08/19 10/08/1910/07/20 Range/Units 06:52 08:18 08:18 WBC 21.1 H (3.8-10.6) k/uL RBC 3.97 L (4.30-5.90) m/uL Hgb 11.3 L (13.0-17.5) gm/dL Hct 37.3 L (39.0-53.0) % MCHC 30.3 L (31.0-37.0) g/dL Plt Count 649 H (150-450) k/uL Neutrophils # 20.0 H (1.3-7.7) k/uL Lymphocytes # 0.6 L (1.0-4.8) k/uL Sodium 135 L (137-145) mmol/L BUN 29 H (9-20) mg/dL Creatinine 0.65 L (0.66-1.25) mg/dL Glucose 128 H (74-99) mg/dL POC Glucose (mg/dL) 164 H (75-99) mg/dL 10/08/19 10/08/19 Range/Units 11:25 16:22 WBC (3.8-10.6) k/uL RBC (4.30-5.90) m/uL Hgb (13.0-17.5) gm/dL Hct (39.0-53.0) % MCHC (31.0-37.0) g/dL Plt Count (150-450) k/uL Neutrophils # (1.3-7.7) k/uL Lymphocytes # (1.0-4.8) k/uL Sodium (137-145) mmol/L BUN (9-20) mg/dL Creatinine (0.66-1.25) mg/dL Glucose (74-99) mg/dL POC Glucose (mg/dL) 125 H 173 H (75-99) mg/dL Microbiology - Last 24 Hours (Table) 10/06/19 00:59 Blood Culture Gram Stain - Final Blood Blood Culture - Final Enterococcus faecalis Assessment and Plan Assessment: Generalized pain and left shoulder pain and back pain. improving, History of left clavicle fracture Multiple compression fractures in the thoracic and lumbar spine progressing compared to prior CT Acute COPD exacerbation Enterococcus faecalis bacteremia. 1 out of 2 bottles. Follow-up repeatblood cultures. Leukocytosis Bibasilar atelectasis Hypovolemic hyponatremia Rheumatoid arthritis History of lower GI bleed/diverticular disease Bilateral macular degeneration History of splenectomy Previous hx of Smoking DVT prophylaxis with heparin subcu Plan: Patient will be continued pain management and orthopedic surgery was consulted. We will continue with breathing treatments and started IV steroids and antibiotics in the home vancomycin and follow-up final blood culture report. Continue with the home medications and further recommendations based on the clinical course. Encourage incentive spirometry. PT/OT . Time with Patient: Greater than 30
--- NOTE | 2019-10-09 00:05 | XR ---
EXAMINATION TYPE: XR KUB DATE OF EXAM: 10/08/2019 COMPARISON: NONE HISTORY: Abdominal pain TECHNIQUE: 2 views supine FINDINGS: There are multiple gas-filled distended loops of small bowel in the mid abdomen. I see no e vidence of free air. Lung bases appear clear of consolidation. There are no pathologic calcifications over the kidneys. IMPRESSION: Distended small bowel could relate to ileus or partial mechanical small bowel obstruction . No free air.
[2019-10-09] MEDS ORDERED: diphenhydrAMINE 50 MG/ML 1 ML VIAL IVP STA (00:19)
[2019-10-09] MEDS: MORPHINE SULFATE 4 MG/ML SYRINGE IV PRN ×2 (01:59→16:14)
[2019-10-09] MEDS: AMPICILLIN-SULBACTAM 3 GM in SODIUM CHLORIDE 0.9% 100 ML IVPB SCH ×3 (01:59→16:16)
[2019-10-09] MEDS: HEPARIN SODIUM,PORCINE 5,000 UNIT/ML 1 ML VIAL SQ SCH ×2 (01:59→15:51)
[2019-10-09] MEDS: METOPROLOL TARTRATE 25 MG TAB PO SCH ×2 (02:09→13:24)
[2019-10-09] MEDS: MAGNESIUM OXIDE 400 MG TAB PO SCH ×2 (02:09→15:50)
[2019-10-09] MEDS: DICLOFENAC SODIUM GEL 100 GM TUBE TOPICAL SCH ×3 (02:09→15:51)
[2019-10-09 02:17] LABS: Glucose,Whole Blood 143 mg/dL (75-99)
[2019-10-09] MEDS ORDERED: HALOPERIDOL LACTATE 5 MG/ML 1 ML VIAL IM PRN (02:54)
[2019-10-09] MEDS: HALOPERIDOL LACTATE 5 MG/ML 1 ML VIAL IM PRN (02:59)
[2019-10-09] MEDS: INSULIN ASPART (NovoLOG) 100 UNIT/ML VIAL SQ SCH ×3 (03:01→15:50)
[2019-10-09] MEDS: diphenhydrAMINE 50 MG/ML 1 ML VIAL IVP PRN (05:52)
[2019-10-09 07:48] LABS: Glucose,Whole Blood 108 mg/dL (75-99)
[2019-10-09] MEDS: IPRATROPIUM-ALBUTEROL 3 ML NEB INHALATION PRN (08:17)
[2019-10-09] MEDS: SYMBICORT 160-4.5 MCG INHALER INHALATION SCH (08:17)
[2019-10-09] MEDS ORDERED: predniSONE 10 MG TAB PO SCH (09:00)
--- NOTE | 2019-10-09 11:26 | P.GSCN ---
History of Present Illness Consult date: 10/09/19 History of present illness: CHIEF COMPLAINT: Ileus HISTORY OF PRESENT ILLNESS: The patient is a 84 year old male with multiple medical co-morbidities hospitalized last week for generalized weakness who presents during this hospitalization with generalized aches. During hospitalization, he had brief abdominal pain where abdominal xray was obtained. Secondary to findings, general surgery was consulted. At the time of evaluation, he is having bowel movements and tolerating diet. Also, patient is in restraints. PAST MEDICAL HISTORY: See list and reviewed PAST SURGICAL HISTORY: See list and reviewed MEDICATIONS: See list and reviewed ALLERGIES: See list and reviewed SOCIAL HISTORY: See list and reviewed FAMILY HISTORY: See list and reviewed REVIEW OF ORGAN SYSTEMS: CONSTITUTIONAL: No fevers or chills. EYES: Has macular degeneration. HEENT: No difficulties with hearing. No nosebleeds. RESPIRATORY: Denies pneumonia. Denies any troubles with breathing or dyspnea on exertion. Has asthma. Has congestive heart failure. CARDIOVASCULAR: Denies any chest pain, palpitations, or recent heart attacks. Has hypertension. GASTROINTESTINAL: Has past history of GI bleed. GENITOURINARY: Denies any blood in urine or increased urinary frequency. NEUROLOGICAL: Denies any numbness or tingling along the distal extremities. No seizure disorders or headaches. MUSCULOSKELETAL: Has back pain, stiffness or joint arthritis. SKIN: No current skin cancer. No rash. PSYCHIATRIC: Denies current depression or suicidal thoughts. ENDOCRINE: Denies current thyroid disorders. Denies any blood sugar glucose intolerance. HEME/LYMPHATIC: Denies any lumps and bumps around the neck. No recent deep venous thrombosis. ALLERGY/IMMUNOLOGY: No immunoglobulin therapy. No immune deficiencies. BREAST: Denies current breast lumps, pain or nipple discharge. PHYSICAL EXAM: VITALS: Reviewed CONSTITUTIONAL: Well developed and in no acute distress. EYES: Conjuctivae without sclera icterus. Pupils are equally round and reactive to light. Extraocular movements grossly intact. HEAD, EARS, NOSE, THROAT: Moist buccal mucosa. Head is atraumatic, normocephalic. Hears conversational speech. No nasal drainage. NECK: Supple. No thyroidomegaly. RESPIRATORY: Non-labored respirations and equal bilateral excursions. No gross wheezes. CARDIOVASCULAR: Palpable 2+ radial pulses. ABDOMEN: Soft, protuberant, nondistended. LYMPH: No neck lymphadenopathy. MUSCULOSKELETAL: Nail and fingers with good capillary refill. SKIN: Warm and well perfused with good skin turgor. NEUROLOGIC: Cranial nerves II through XII grossly intact. No focal or lateralizing signs. PSYCH: Alert and oriented to person, place and time. Displays appropriate insight. CLINCAL LABS: Reviewed. WBC 21.0 and elevated. Creatinine 0.65. IMAGING: Independently reviewed of abdominal xray with air and gas in rectum including stool. No free air. RADIOLOGY: Report reviewed xray of the abdomen shows ileus versus small bowel obstruction. RECORDS: previous old records reviewed with recent dyspnea and weakness for hospitalization ASSESSMENT: 1. Ileus PLAN: 1. He is having bowel movements and tolerating diet. Expectant management for resolving ileus. 2. Diet as tolerated Thank you for this kind consultation. Past Medical History Past Medical History: Eye Disorder, GI Bleed, Hypertension, Rheumatoid Arthritis (RA) Additional Past Medical History / Comment(s): Lower GI bleed/diverticular disease with severe anemia/surgery, bilateral macular degeneration with some vision loss, pt denies hyperlipidemia. History of Any Multi-Drug Resistant Organisms: None Reported Past Surgical History: Bowel Resection, Tonsillectomy Additional Past Surgical History / Comment(s): Laparotomy/low anterior resection/splenectomy 2ndary to severe bleeding, colonoscopy Past Anesthesia/Blood Transfusion Reactions: No Reported Reaction Additional Past Anesthesia/Blood Transfusion Reaction / Comm: Pt has received blood in past without reaction. Past Psychological History: No Psychological Hx Reported Additional Psychological History / Comment(s): Pt resides alone. He no longer drives, his daughter takes him to appts. Smoking Status: Former smoker Past Alcohol Use History: None Reported Additional Past Alcohol Use History / Comment(s): Pt started smoking in 1950 and quit in 2003. Past Drug Use History: None Reported - Past Family History Father Additional Family Medical History / Comment(s): Father drank heavily. He was healthy and lived into his 80s. Mother Family Medical History: No Reported History Medications and Allergies Home Medications Medication Instructions Recorded Confirmed Type Losartan-Hctz 50-12.5 mg [Hyzaar 1 tab PO DAILY 07/24/19 10/09/19 History 50-12.5] Vit C/E/Zn/Coppr/Lutein/Zeaxan 1 cap PO BID 07/24/19 10/09/19 History [Preservision Areds 2 Softgel] Albuterol Inhaler [Ventolin Hfa 1 puff INHALATION RT-QID #1 puff 07/27/19 10/09/19 Rx Inhaler] Aspirin 81 mg PO DAILY chew 07/27/19 10/09/19 Rx Acetaminophen [Tylenol Extra 500 mg PO Q8H PRN 10/01/19 10/09/19 History Strength] Fluticasone Nasal [place] [Flonase 1 spray EA NOSTRIL BID PRN 10/01/19 10/09/19 History Nasal [place]] Budesonide-Formot 160-4.5 Mcg 2 puff INHALATION RT-BID 30 Days 10/02/19 10/09/19 Rx [Symbicort 160-4.5 Mcg Inhaler] #1 puff Isosorbide Mononitrate ER [Imdur] 30 mg PO DAILY 30 Days #30 10/02/19 10/09/19 Rx tab.er.24h Metoprolol Tartrate [Lopressor] 25 mg PO BID 30 Days #60 tab 10/02/19 10/09/19 Rx Nitroglycerin Sl Tabs [Nitrostat] 0.4 mg SUBLINGUAL Q5M PRN #28 tab 10/02/19 10/09/19 Rx Allergies Allergy/AdvReac Type Severity Reaction Status Date / Time No Known Allergies Allergy Verified 10/09/19 19:13 Surgical - Exam Vital Signs Temp Pulse Resp BP Pulse Ox 98 F 103 H 20 126/65 91 L 10/05/19 17:54 10/05/19 17:54 10/05/19 17:54 10/05/19 17:54 10/05/19 17:54 Results - Labs 10/08/19 08:18 10/08/19 08:18 Abnormal Lab Results - Last 24 Hours (Table) 10/08/19 10/08/19 10/09/19 Range/Units 11:25 16:22 02:16 POC Glucose (mg/dL) 125 H 173 H 143 H (75-99) mg/dL 10/09/19 Range/Units 07:46 POC Glucose (mg/dL) 108 H (75-99) mg/dL Microbiology - Last 24 Hours (Table) 10/08/19 08:18 Blood Culture Gram Stain - Preliminary Blood 10/06/19 00:59 Blood Culture Gram Stain - Final Blood Blood Culture - Final Enterococcus faecalis 10/08/19 08:18 Blood Culture - Final Blood Assessment and Plan (1) Ileus Status: Acute Code(s): K56.7 - ILEUS, UNSPECIFIED SNOMED Code(s): 201617850
[2019-10-09 12:32] LABS: Glucose,Whole Blood 117 mg/dL (75-99)
[2019-10-09] MEDS: ISOSORBIDE MONONITRATE ER 30 MG TAB.ER.24H PO SCH (13:24)
[2019-10-09 15:51] VITALS: BP 145/82; PULSE 85; RESP 20; TEMP 98
[2019-10-09] MEDS: methylPREDNISolone SOD SUCCI 40 MG/ML 1 ML VIAL IV SCH (15:52)
[2019-10-09] MEDS: VANCOMYCIN 1,250 MG in SODIUM CHLORIDE 0.9% 250 ML IVPB SCH (15:52)
--- NOTE | 2019-10-09 16:00 | PN ---
PROGRESS NOTE DATE OF SERVICE: 10/09/2019 REASON FOR FOLLOWUP: Enterococcus faecalis bacteremia. INTERVAL HISTORY: The patient is currently afebrile. The patient is hemodynamically stable. The patient seems to have more agitation today. He was given sedative last night, unable to provide any history. No vomiting or diarrhea has been reported. The patient himself is unable to provide any history. PHYSICAL EXAMINATION: Blood pressure 161/79 with a pulse of 102. Temperature is 98.1. He is 97% on 4 L nasal cannula. General description is an elderly male lying in bed in no distress. RESPIRATORY SYSTEM: Unlabored breathing. Clear to auscultation anteriorly. HEART: S1, S2. Regular rate and rhythm. ABDOMEN: Soft. No distention. No guarding or rigidity. EXTREMITIES: No edema of the feet. LABS: Hemoglobin 11.3, white count 21.1, BUN of 29, creatinine 0.65. DIAGNOSTIC IMPRESSION AND PLAN: Patient with Enterococcus faecalis bacteremia. Blood culture from yesterday positive as well. Blood cultures were repeated today and will be repeated tomorrow as well. CT has been ordered. Will wait for it to be finalized. Unasyn to continue. Monitor his clinical course closely. MMODL / IJN: [id number] / MTDJamie
[2019-10-09 17:06] LABS: Glucose,Whole Blood 108 mg/dL (75-99)
--- NOTE | 2019-10-09 23:43 | P.DS ---
Providers Date of admission: 10/07/19 09:20 Expected date of discharge: 10/09/19 Attending physician: Ian Mcmillan Consults: 10/05/19 23:40 Consult Physician Stat Consulting Provider: Kendall Guajardo Consult Reason/Comments: compression fx, left clavicle fx Do you want consulting provider notified?: Yes 10/08/19 10:55 Consult Physician Routine Consulting Provider: Jael Haddad Consult Reason/Comments: E. fecalis Bacteremia Do you want consulting provider notified?: Yes 10/09/19 06:59 Consult Physician Urgent Consulting Provider: Sirisha Brito Consult Reason/Comments: ilues vs bowel obstruction Do you want consulting provider notified?: Yes Primary care physician: Ashley Chavez Hospital Course: Discharge diagnosis Enterococcus faecalis bacteremia. 1 out of 2 bottles. Follow-up repeatblood cultures. Ileus and possible small bowel obstruction. Generalized pain and left shoulder pain and back pain. History of left clavicle fracture Multiple compression fractures in the thoracic and lumbar spine progressing compared to prior CT Acute COPD exacerbation Leukocytosis Bibasilar atelectasis Hypovolemic hyponatremia Rheumatoid arthritis History of lower GI bleed/diverticular disease Bilateral macular degeneration History of splenectomy Previous hx of Smoking DVT prophylaxis with heparin subcu Hospital course Patient is a 84-year-old male with a known history of hypertension, RA, history of lower GI bleed/diverticular disease bilateral macular degeneration, status post splenectomy presents to ER with complaints of generalized pain. Patient states that he has been having pain in his thoracic and lumbar spine. Patient also complaining of right rib cage pain shoulder pain and left shoulder pain. Patient is also having shortness of breath and wheezing at rest but denied any complaints of difficulty in breathing. Denied any recent fall or trauma. No complaints of fever or chills. Patient does have cough with deep breathing and no sputum production. Denied any nausea vomiting or diarrhea. Denied any abdominal pain. Patient does have previous history of smoking. X-ray of the ribs showed no active cardiopulmonary disease. No acute bony abnormality. Old left clavicle fracture. X-ray of the lumbar spine showed compression fractures. There is appearance of osteoporosis and osteomalacia. X-ray of the thoracic spine showed compression fractures of T6 has progressed compared to previous chest CT. Shoulder x-ray showed mild osteoarthritis. There is healing fracture lateral and left clavicle without change in position compared to chest x-ray on 07/24/2019 CT angiogram of the chest showed no evidence of pulmonary embolism. Basilar pulmonary scarring and atelectasis increased slightly compared to old exam. Mild multiple compression fractures have progressive compared to old exam. Pulmonary emphysema. EKG showed sinus tachycardia Laboratory data reviewed which showed WBC 14.6, hemoglobin 11.2 and platelets 461 Sodium 132 potassium 3.8, chloride 96 and BUN 25 and creatinine 0.64 Lactic acid 1.3 Lipase level 56 Liver enzymes are not elevated Troponin x3- Coronavirus PCR not detected Patient is a poor historian otherwise. 10/07/2019 Patient is currently lying in the bed comfortably. Back pain and shoulder pain is better. Breathing status is better as well. Minimal expiratory wheezing was noted otherwise air entry is much improved. Patient will be started on PT OT. Blood cultures grew group D enterococcus. Patient is currently on vancomycin. Repeat cultures were ordered. ID will be consulted. Patient has been afebrile. Still having leukocytosis at 16.2. Patient is also on steroids as well. Patient is afebrile. No nausea vomiting or abdominal pain or diarrhea. 10/08/2019 Patient is currently lying in the bed comfortably. Back pain and shoulder pain is improving. Continued on pain management. Otherwise blood cultures grew Enterococcus faecalis. ID will be consulted and repeat blood cultures were ordered. Patient still having leukocytosis with WBC count 21.1. Patient is also on steroids as well. No wheezing noted on examination and I discharge will be changed to prednisone 30 mg daily. Patient has been afebrile. Other laboratory data showed BUN 29 creatinine 0.65 blood sugar is controlled. No complaints of chest pain or shortness of breath. 10/09/2019 Overnight patient was complaining of abdominal pain and abdominal x-ray showed ileus versus small bowel partial obstruction. Patient was seen by general surgery recommends conservative management. Patient is otherwise being treated with ampicillin enterococcus faecalis bacteremia. Patient is still complaining of severe pain and was also having difficulty in breathing. Patient is not able to keep down any foods at this time. Very lethargic and confused. After discussion with his daughter patient wishes comfort measures and hospice care at this time. Patient will be transferred under hospice service. Vital Signs - 24 hr 10/09/19 10/09/19 10/09/19 00:00 03:00 04:00 Temperature Pulse Rate Pulse Rate [ Bilateral Dorsalis Pedis] Pulse Rate [ 124 H Pulse Oximetery ] Respiratory 20 20 20 Rate Blood Pressure 159/83 [Left Arm] O2 Sat by Pulse 100 Oximetry 10/09/19 10/09/19 10/09/19 08:17 10:30 15:00 Temperature 98 F Pulse Rate 102 H Pulse Rate [ 85 Bilateral Dorsalis Pedis] Pulse Rate [ 107 H Pulse Oximetery ] Respiratory 26 H 20 Rate Blood Pressure 161/79 145/82 [Left Arm] O2 Sat by Pulse 97 97 Oximetry Discharge physical examination was done. Time taken more than 35 minutes including patient care in which more than 50% was spent on coordinating care and counseling. Patient Condition at Discharge: Serious Plan - Discharge Summary Discharge Rx Participant: Yes New Discharge Prescriptions: No Action Vit C/E/Zn/Coppr/Lutein/Zeaxan [Preservision Areds 2 Softgel] 1 cap PO BID Losartan-Hctz 50-12.5 mg [Hyzaar 50-12.5] 1 tab PO DAILY Aspirin 81 mg PO DAILY chew Albuterol Inhaler [Ventolin Hfa Inhaler] 1 puff INHALATION RT-QID #1 puff Fluticasone Nasal [place] [Flonase Nasal [place]] 1 spray EA NOSTRIL BID PRN PRN Reason: Allergy Symptoms Acetaminophen [Tylenol Extra Strength] 500 mg PO Q8H PRN PRN Reason: Pain Isosorbide Mononitrate ER [Imdur] 30 mg PO DAILY 30 Days #30 tab.er.24h Metoprolol Tartrate [Lopressor] 25 mg PO BID 30 Days #60 tab Nitroglycerin Sl Tabs [Nitrostat] 0.4 mg SUBLINGUAL Q5M PRN #28 tab PRN Reason: Chest Pain Budesonide-Formot 160-4.5 Mcg [Symbicort 160-4.5 Mcg Inhaler] 2 puff INHALATION RT-BID 30 Days #1 puff Discharge Medication List Losartan-Hctz 50-12.5 mg [Hyzaar 50-12.5] 1 tab PO DAILY 07/24/19 [History] Vit C/E/Zn/Coppr/Lutein/Zeaxan [Preservision Areds 2 Softgel] 1 cap PO BID 07/24/19 [History] Albuterol Inhaler [Ventolin Hfa Inhaler] 1 puff INHALATION RT-QID #1 puff 04/03/20 [Rx] Aspirin 81 mg PO DAILY chew 07/27/19 [Rx] Acetaminophen [Tylenol Extra Strength] 500 mg PO Q8H PRN 10/01/19 [History] Fluticasone Nasal [place] [Flonase Nasal [place]] 1 spray EA NOSTRIL BID PRN 10/01/19 [History] Budesonide-Formot 160-4.5 Mcg [Symbicort 160-4.5 Mcg Inhaler] 2 puff INHALATION RT-BID 30 Days #1 puff 10/02/19 [Rx] Isosorbide Mononitrate ER [Imdur] 30 mg PO DAILY 30 Days #30 tab.er.24h 10/02/19 [Rx] Metoprolol Tartrate [Lopressor] 25 mg PO BID 30 Days #60 tab 10/02/19 [Rx] Nitroglycerin Sl Tabs [Nitrostat] 0.4 mg SUBLINGUAL Q5M PRN #28 tab 10/02/19 [Rx] Follow up Appointment(s)/Referral(s): Ashley Chavez MD [Primary Care Provider] - 1-2 days [facility], [NON-STAFF] - [facility] [place], [[facility]] - As Needed Kendall Guajardo MD [STAFF PHYSICIAN] - 2 Weeks Discharge Disposition: OTHER INSTITUTION NOT DEFINED
--- NOTE | 2019-10-10 12:41 | CDI ---
Documentation Clarification Form Date: 10/10/19 From: Rani Steve Phone: If you have a question about this query, please contact Vianey Agustin, Director Public at [phone] between 8am and 5pm. Admit Date: 10/05/19 Discharge Date:10/09/19 Patient Name: Chase Reyes Visit Number: [id number] ATTENTION: The Clinical Documentation Specialists (CDI) and [facility] Coding Staff appreciate your assistance in clarifying documentation. Please respond to the clarification below the line at the bottom and electronically sign. The CDI & [facility] Coding staff will review the response and follow-up if needed. Please note: Queries are made part of the Legal Health Record. If you have any questions, please contact the author of this message via ITS. Dear Dr. Persaud Bacteremia documented in the H&P, discharge summary and your progress notes and in Dr. Haddad's consult note and progress note. Patient history/risk factors: Ileus, possible small bowel obstruction, compression fracture of the spine Clinical Indicators: Bacteria in the blood WBC: 10/04 - 14.6, 10/07 - 21.1 Left Shift: 84% Blood Culture: Enterococcus faecalis Treatment: Antibiotics IV Ampicillin, IV Vancomycin Bacteremia is considered a lab finding. Please clarify if that lab finding is clinical indicator of a more definitive medical diagnosis such as: Sepsis Infectious Process, please specify: Other, please specify Unable to determine Sepsis MTDD
--- NOTE | 2019-10-10 12:50 | CDI ---
Documentation Clarification Form Date: 10/10/19 From: Rani Steve Phone: If you have a question about this query, please contact Vianey Agustin, Nail Machine Operator at [phone] between 8am and 5pm. Admit Date: 10/05/19 Discharge Date:10/09/19 Patient Name: Chase Reyes Visit Number: [id number] ATTENTION: The Clinical Documentation Specialists (CDI) and [facility] Coding Staff appreciate your assistance in clarifying documentation. Please respond to the clarification below the line at the bottom and electronically sign. The CDI & [facility] Coding staff will review the response and follow-up if needed. Please note: Queries are made part of the Legal Health Record. If you have any questions, please contact the author of this message via ITS. Dear Dr. Persaud Patient has been diagnosed with a compression fracture in the thoracic and lumbar spine. History/Risk Factors: Fracture of the left clavicle, COPD Clinical Indications: Chronic pain in the shoulders and back X-Ray Results: Lumbar Spine: Compression fracture. There is appearance of osteoporosis and osteomalacia. CT: Thoracic spine: Compression fracture of T6 has progressed compared to chest CT scan. Treatment: IV Morphine In your professional opinion, please specify the following: Etiology of thoracic and lumbar vertebra fracture and the clavicle fracture Traumatic Pathological (specify cause): Osteoporosis Other (please specify): Unable to determine Episode of care: Initial Subsequent with delayed healing Subsequent with malunion Subsequent with nonunion Sequela Osteoporosis Subsequent with delayed healing MTDD
== END 2019-10-09 18:23 | DRG 872 ==
LOC: EC 17:27 → 4SSUR 21:11 → OBSVTOIN 10-07 09:20
PROVIDERS: ADMIT Hospitalist; ATTEND Hospitalist
DX: A41.9 Sepsis, unspecified organism (principal); E87.1 Hypo-osmolality and hyponatremia; J98.11 Atelectasis; K56.7 Ileus, unspecified; K56.609 Unspecified intestinal obstruction, unspecified as to partial versus complete obstruction; B95.2 Enterococcus as the cause of diseases classified elsewhere; M80.012 Age-related osteoporosis with current pathological fracture, left shoulder; M48.56XG Collapsed vertebra, not elsewhere classified, lumbar region, subsequent encounter for fracture with delayed healing; E86.1 Hypovolemia; G89.29 Other chronic pain; H35.30 Unspecified macular degeneration; I10 Essential (primary) hypertension; J43.9 Emphysema, unspecified; M06.9 Rheumatoid arthritis, unspecified; M19.011 Primary osteoarthritis, right shoulder; M19.012 Primary osteoarthritis, left shoulder; Z11.59 Encounter for screening for other viral diseases; M47.9 Spondylosis, unspecified; H54.7 Unspecified visual loss; Z79.51 Long term (current) use of inhaled steroids; Z79.899 Other long term (current) drug therapy; Z51.5 Encounter for palliative care; Z78.1 Physical restraint status; K57.90 Diverticulosis of intestine, part unspecified, without perforation or abscess without bleeding; Z87.891 Personal history of nicotine dependence; Z90.81 Acquired absence of spleen; Z79.82 Long term (current) use of aspirin; Z90.49 Acquired absence of other specified parts of digestive tract; Z81.1 Family history of alcohol abuse and dependence
CPT/HCPCS: 36415; 71111; 71275; 72072; 72100; 74018; 80048; 80053; 80202; 81001; 83605; 83690; 83735; 84484; 85025; 85379; 87040; 87077; 87186; 93005; 94640; 94760; 96361; 96374; 99285

== ENCOUNTER 2019-10-09 18:30 | Inpatient (IN) | payer MEDICAID ==
[~2019-10-09 18:30] MED LIST: SCOPOLAMINE 1.5MG/72HR PATCH TRANSDERM SCH
[2019-10-09] MEDS ORDERED: ONDANSETRON 4 MG/2 ML VIAL IVP PRN (18:56)
[2019-10-09] MEDS ORDERED: ACETAMINOPHEN TAB 325 MG TAB PO PRN (18:56)
[2019-10-09] MEDS ORDERED: BISACODYL 10 MG SUPP RECTAL PRN (18:58)
[2019-10-09] MEDS ORDERED: SCOPOLAMINE 1.5MG/72HR PATCH TRANSDERM SCH (19:00)
[2019-10-09] MEDS: MORPHINE SULFATE 2 MG/ML SYRINGE IV PRN (20:12)
[2019-10-09] MEDS: LORazepam 2 MG/ML INJ IV PRN (20:12)
[2019-10-10] MEDS: LORazepam 2 MG/ML INJ IV PRN ×7 (00:32→23:43)
[2019-10-10] MEDS: MORPHINE SULFATE 2 MG/ML SYRINGE IV PRN ×5 (00:32→15:26)
[2019-10-10 04:56] VITALS: RESP 24
[2019-10-10 11:27] LABS: Glucose,Whole Blood 86 mg/dL (75-99)
[2019-10-10] MEDS ORDERED: MORPHINE SULFATE 4 MG/ML SYRINGE IV PRN (13:53)
[2019-10-10] MEDS: ATROPINE OPHTH SOLN 1% 5ML BTL SUBLINGUAL PRN ×3 (15:25→23:43)
--- NOTE | 2019-10-11 01:24 | P.HPIM ---
History of Present Illness H&P Date: 10/10/19 Chief Complaint: Chronic pain and bacteremia Patient is a 84-year-old male with a known history of hypertension, RA, history of lower GI bleed/diverticular disease bilateral macular degeneration, status post splenectomy presents to ER with complaints of generalized pain. Patient states that he has been having pain in his thoracic and lumbar spine. Patient also complaining of right rib cage pain shoulder pain and left shoulder pain. Patient is also having shortness of breath and wheezing at rest but denied any complaints of difficulty in breathing. Denied any recent fall or trauma. No complaints of fever or chills. Patient does have cough with deep breathing and no sputum production. Denied any nausea vomiting or diarrhea. Denied any abdominal pain. Patient does have previous history of smoking. X-ray of the ribs showed no active cardiopulmonary disease. No acute bony abnormality. Old left clavicle fracture. X-ray of the lumbar spine showed compression fractures. There is appearance of osteoporosis and osteomalacia. X-ray of the thoracic spine showed compression fractures of T6 has progressed compared to previous chest CT. Shoulder x-ray showed mild osteoarthritis. There is healing fracture lateral and left clavicle without change in position compared to chest x-ray on 07/24/2019 CT angiogram of the chest showed no evidence of pulmonary embolism. Basilar pulmonary scarring and atelectasis increased slightly compared to old exam. Mild multiple compression fractures have progressive compared to old exam. Pulmonary emphysema. EKG showed sinus tachycardia Laboratory data reviewed which showed WBC 14.6, hemoglobin 11.2 and platelets 461 Sodium 132 potassium 3.8, chloride 96 and BUN 25 and creatinine 0.64 Lactic acid 1.3 Lipase level 56 Liver enzymes are not elevated Troponin x3- Coronavirus PCR not detected Patient is a poor historian otherwise. 10/07/2019 Patient is currently lying in the bed comfortably. Back pain and shoulder pain is better. Breathing status is better as well. Minimal expiratory wheezing was noted otherwise air entry is much improved. Patient will be started on PT OT. Blood cultures grew group D enterococcus. Patient is currently on vancomycin. Repeat cultures were ordered. ID will be consulted. Patient has been afebrile. Still having leukocytosis at 16.2. Patient is also on steroids as well. Patient is afebrile. No nausea vomiting or abdominal pain or diarrhea. 10/08/2019 Patient is currently lying in the bed comfortably. Back pain and shoulder pain is improving. Continued on pain management. Otherwise blood cultures grew Enterococcus faecalis. ID will be consulted and repeat blood cultures were ordered. Patient still having leukocytosis with WBC count 21.1. Patient is also on steroids as well. No wheezing noted on examination and I discharge will be changed to prednisone 30 mg daily. Patient has been afebrile. Other laboratory data showed BUN 29 creatinine 0.65 blood sugar is controlled. No complaints of chest pain or shortness of breath. 10/09/2019 Overnight patient was complaining of abdominal pain and abdominal x-ray showed ileus versus small bowel partial obstruction. Patient was seen by general surgery recommends conservative management. Patient is otherwise being treated with ampicillin enterococcus faecalis bacteremia. Patient is still complaining of severe pain and was also having difficulty in breathing. Patient is not able to keep down any foods at this time. Very lethargic and confused. After discussion with his daughter patient wishes comfort measures and hospice care at this time. Patient will be transferred under hospice service. 10/10/2019 Patient is lying in the bed comfortably. Awake alert and confused and disoriented. Currently being continued on hospice care. Review of Systems Review of systems could not be obtained from the patient. Past Medical History Past Medical History: Eye Disorder, GI Bleed, Hypertension, Rheumatoid Arthritis (RA) Additional Past Medical History / Comment(s): Lower GI bleed/diverticular disease with severe anemia/surgery, bilateral macular degeneration with some vision loss, pt denies hyperlipidemia. History of Any Multi-Drug Resistant Organisms: None Reported Past Surgical History: Bowel Resection, Tonsillectomy Additional Past Surgical History / Comment(s): Laparotomy/low anterior resection/splenectomy 2ndary to severe bleeding, colonoscopy Past Anesthesia/Blood Transfusion Reactions: No Reported Reaction Additional Past Anesthesia/Blood Transfusion Reaction / Comment(s): Pt has received blood in past without reaction. Past Psychological History: No Psychological Hx Reported Additional Psychological History / Comment(s): Pt resides alone. He no longer drives, his daughter takes him to [employer]. Smoking Status: Former smoker Past Alcohol Use History: None Reported Additional Past Alcohol Use History / Comment(s): Pt started smoking in 1950 and quit in 2003. Past Drug Use History: None Reported - Past Family History Father Additional Family Medical History / Comment(s): Father drank heavily. He was healthy and lived into his 80s. Mother Family Medical History: No Reported History Medications and Allergies Home Medications Medication Instructions Recorded Confirmed Type Losartan-Hctz 50-12.5 mg [Hyzaar 1 tab PO DAILY 07/24/19 10/09/19 History 50-12.5] Vit C/E/Zn/Coppr/Lutein/Zeaxan 1 cap PO BID 07/24/19 10/09/19 History [Preservision Areds 2 Softgel] Albuterol Inhaler [Ventolin Hfa 1 puff INHALATION RT-QID #1 puff 07/27/19 10/09/19 Rx Inhaler] Aspirin 81 mg PO DAILY chew 07/27/19 10/09/19 Rx Acetaminophen [Tylenol Extra 500 mg PO Q8H PRN 10/01/19 10/09/19 History Strength] Fluticasone Nasal [place] [Flonase 1 spray EA NOSTRIL BID PRN 10/01/19 10/09/19 History Nasal [place]] Budesonide-Formot 160-4.5 Mcg 2 puff INHALATION RT-BID 30 Days 10/02/19 10/09/19 Rx [Symbicort 160-4.5 Mcg Inhaler] #1 puff Isosorbide Mononitrate ER [Imdur] 30 mg PO DAILY 30 Days #30 10/02/19 10/09/19 Rx tab.er.24h Metoprolol Tartrate [Lopressor] 25 mg PO BID 30 Days #60 tab 10/02/19 10/09/19 Rx Nitroglycerin Sl Tabs [Nitrostat] 0.4 mg SUBLINGUAL Q5M PRN #28 tab 10/02/19 10/09/19 Rx Allergies Allergy/AdvReac Type Severity Reaction Status Date / Time No Known Allergies Allergy Verified 10/09/19 19:13 Physical Exam Vitals: Vital Signs Resp Pulse Ox 10/10/19 04:44 24 10/09/19 23:27 20 10/09/19 20:40 97 10/09/19 19:22 20 Intake and Output 10/10/19 10/10/19 10/10/19 06:59 14:59 22:59 Output Total 150 Balance -150 Output: Urine 150 Other: Voiding Method Urinal Urinal Diaper Diaper Incontinent # Voids 1 PHYSICAL EXAMINATION: Patient is lying in the bed comfortably, no distress, awake alert and oriented x1.. HEENT: Normocephalic. Neck is supple. Pupils reactive. Nostrils clear. Oral cavity is moist. Ears reveal no drainage. Neck reveals no JVD, carotid bruits, or thyromegaly. CHEST EXAMINATION: Trachea is central. Symmetrical expansion. b/l diminished sounds. no crackles. basilar diminishes sounds. no labored, . CARDIAC: Normal S1, S2 with no gallops. No murmurs ABDOMEN: Soft. ventral hernia, Bowel sounds normal. No organomegaly. No abdominal bruits. Extremities: reveal no edema. No clubbing or cyanosis Neurologically awake, alert, oriented x1 with well-coordinated movements. No focal deficits noted Skin: No rash or skin lesions. Psychiatric: Coperative. Nonsuicidal Musculoskeletal: No joint swelling or deformity. decreased range of motion. tenderness all over spine and ribs. Assessment and Plan Assessment: Enterococcus faecalis bacteremia. 1 out of 2 bottles. Ileus and possible small bowel obstruction. Generalized pain and left shoulder pain and back pain. History of left clavicle fracture Multiple compression fractures in the thoracic and lumbar spine progressing compared to prior CT Acute COPD exacerbation Leukocytosis Bibasilar atelectasis Hypovolemic hyponatremia Rheumatoid arthritis History of lower GI bleed/diverticular disease Bilateral macular degeneration History of splenectomy Previous hx of Smoking DVT prophylaxis with heparin subcu
[2019-10-11] MEDS: MORPHINE SULFATE 2 MG/ML SYRINGE IV PRN ×2 (02:44→09:13)
[2019-10-11] MEDS: LORazepam 2 MG/ML INJ IV PRN ×3 (02:45→09:12)
[2019-10-11] MEDS: ATROPINE OPHTH SOLN 1% 5ML BTL SUBLINGUAL PRN ×2 (02:45→09:12)
[2019-10-11] MEDS ORDERED: FUROSEMIDE 10 MG/ML 4 ML VIAL IV STA (10:12)
[2019-10-11] MEDS: MORPHINE SULFATE (100 MG/2 ML) 100 MG in SODIUM CHLORIDE 0.9% 100 ML IV SCH ×2 (11:38→15:15)
[2019-10-11] MEDS: GLYCOPYRROLATE 0.2 MG/ML 2 ML VIAL IVP SCH ×2 (11:39→17:06)
== END 2019-10-11 20:04 | disposition expired | DRG 951 ==
LOC: 4SSUR 18:30
PROVIDERS: ADMIT Hospitalist; ATTEND Hospitalist
DX: Z51.5 Encounter for palliative care (principal); E87.1 Hypo-osmolality and hyponatremia; J98.11 Atelectasis; K56.7 Ileus, unspecified; R78.81 Bacteremia; M48.54XA Collapsed vertebra, not elsewhere classified, thoracic region, initial encounter for fracture; K56.609 Unspecified intestinal obstruction, unspecified as to partial versus complete obstruction; M48.56XA Collapsed vertebra, not elsewhere classified, lumbar region, initial encounter for fracture; Z66 Do not resuscitate; B95.2 Enterococcus as the cause of diseases classified elsewhere; E86.1 Hypovolemia; G89.29 Other chronic pain; H35.30 Unspecified macular degeneration; I10 Essential (primary) hypertension; J43.9 Emphysema, unspecified; M06.9 Rheumatoid arthritis, unspecified; M81.0 Age-related osteoporosis without current pathological fracture; K57.90 Diverticulosis of intestine, part unspecified, without perforation or abscess without bleeding; M25.512 Pain in left shoulder; M54.9 Dorsalgia, unspecified; D72.829 Elevated white blood cell count, unspecified; H54.7 Unspecified visual loss; Z90.81 Acquired absence of spleen; Z90.49 Acquired absence of other specified parts of digestive tract; Z87.891 Personal history of nicotine dependence; Z79.51 Long term (current) use of inhaled steroids; Z79.82 Long term (current) use of aspirin; Z79.899 Other long term (current) drug therapy